=== PATIENT | female | born 1950 | race Caucasian/White ===

== ENCOUNTER → 2016-07-23 | Outpatient (CLI) | payer BC ==
[~2016-07-23] MED LIST: ACET-1325; ASPI81TA28 PO; ATOR-26 PO; DICL-201 PO; LISI20TA3 PO; METO50TA7 PO; OFLO0.3S4 OPL; PRED1SUS3; PRED1SUS3 OPR
[2016-07-23 10:59] LABS: CHOLESTEROL/HDL RATIO 6.2
== END | disposition home or self-care (01) ==
LOC: C.LABBC 08:31
PROVIDERS: ATTEND Internal Medicine Cardiovascular Disease
DX: E78.5 Hyperlipidemia, unspecified (principal)

== ENCOUNTER → 2017-02-04 | Outpatient (CLI) | payer BC | END | disposition home or self-care (01) | LOC: C.LABBC 08:24 | PROVIDERS: ATTEND Internal Medicine Cardiovascular Disease | DX: E78.5 Hyperlipidemia, unspecified (principal); I10 Essential (primary) hypertension ==

== ENCOUNTER → 2017-08-06 | Outpatient (CLI) | payer BC ==
[~2017-08-06] MED LIST changes: -METO50TA7 PO; +METO50TA8 PO
== END | disposition home or self-care (01) ==
LOC: C.LABBC 09:14
PROVIDERS: ATTEND Internal Medicine Cardiovascular Disease
DX: I67.9 Cerebrovascular disease, unspecified (principal)

== ENCOUNTER 2021-02-02 17:27 | Inpatient (IN) ==
--- NOTE | 2021-02-02 18:56 | CT Scan Report ---
CT head/brain wo con CLINICAL HISTORY: Stroke Alert . Left-sided weakness COMPARISON STUDY: No previous studies for comparison. CT DOSE: 537.48 mGy.cm TECHNIQUE: Standard CT of the Brain was performed without IV contrast. A dose lowering technique was utilized adhering to the principles of ALARA. FINDINGS: Extraaxial space: There is no evidence for subdural hematoma. There are no extra-axial fluid collecti ons. Ventricles and cisterns: The ventricles are normal in size and configuration. There is no evidence f or midline shift or mass effect. Parenchyma: There is no subarachnoid or intraparenchymal hemorrhage. There is asymmetric low attenua tion within the basal ganglia on the right when compared to the left. Presence of an early acute infa rct at this site cannot be excluded. There is homogeneous attenuation of the remaining brain MRI woul d be the study of choice for further evaluation. Parenchyma. There are no gross mass lesions. Osseous structures: There is no evidence for an acute fracture. The visualized paranasal sinuses are clear. The mastoid air cells are clear bilaterally. Soft tissues: There is no evidence for focal soft tissue swelling. IMPRESSION: Asymmetric low attenuation within the basal tendon on the right when compared to the left . The presence of an early acute infarct at the site cannot be excluded. ACT 112: Negative or not required by law. Electronically signed by: Francisco Moore M.D. 02/02/2021 6:54 PM
[2021-02-02 19:23] LABS: Hematocrit (blood only) 46.8 % (37-47); Hemoglobin 15.7 g/dL (12.0-16.0); Mean Corpuscular Hemoglobin 31.3 pg (25-34); Mean Corpuscular Hgb Conc 33.5 g/dL (32-36); Mean Corpuscular Volume 93.2 fL (80-100); Mean Platelet Volume 10.2 fL (7.4-10.4); Platelet Count 176 K/uL (130-400); RDW Coefficient of Variation 14.6 % (11.5-14.5); RDW Standard Deviation 49.5 fL (36.4-46.3); Red Blood Count 5.02 M/uL (4.2-5.4); White Blood Count 9.67 K/uL (4.8-10.8)
[2021-02-02 19:27] LABS: iSTAT Creatinine 0.7 mg/dl (0.6-1.3); iSTAT Ionized Calcium 1.27 mmol/l (1.12-1.32)
[2021-02-02 19:34] LABS: Partial Thromboplastin Ratio 0.9; Partial Thromboplastin Time 24.2 Seconds (21.0-31.0); Prothrombin Time 9.8 Seconds (9.0-12.0)
[2021-02-02 19:45] LABS: Alanine Aminotransferase 22 U/L (12-78); Albumin Globulin Ratio 0.8 (0.9-2); Albumin Level 3.3 gm/dl (3.4-5.0); Aspartate Aminotransferase 18 U/L (15-37); BUN Creatinine Ratio 24.1 (10-20); Bilirubin,Total 0.6 mg/dl (0.2-1); Blood Urea Nitrogen 20 mg/dl (7-18); Calcium 9.7 mg/dl (8.5-10.1); Carbon Dioxide 27 mmol/L (21-32); Chloride 109 mmol/L (98-107); Creatinine Clr Calc Pharmacy 57.8 ml/min; Est GFR (African American) 80.5 ml/min; Est GFR (Non-African American) 69.4 ml/min; Glucose 116 mg/dl (70-99); Magnesium 2.4 mg/dl (1.8-2.4); Potassium 3.7 mmol/L (3.5-5.1); Sodium 140 mmol/L (136-145); Total Protein 7.3 gm/dl (6.4-8.2)
[2021-02-02 19:46] LABS: Alkaline Phosphatase 90 U/L (45-117)
[2021-02-02] MEDS ORDERED: ASPIRIN 325 MG ECTAB PO STA (22:19)
[2021-02-02] MEDS ORDERED: hydrALAZINE HCL 20 MG/ML VIAL IV STA (22:24)
[2021-02-02] MEDS ORDERED: SODIUM CHLORIDE 0.9% 1000ML 1,000 ML IV SCH (22:30)
--- NOTE | 2021-02-02 22:30 | Emergency Department Note ---
History of Present Illness General Chief complaint: Stroke/CVA Symptoms Stated complaint: LEFT ARM WEAKNESS Time Seen by Provider: 02/02/21 22:01 Source: patient Mode of arrival: ambulatory Limitations: no limitations History of Present Illness Provider complaint: left sided weakness Onset (ago): day(s) 1 Location: upper extremity and lower extremity Radiation: non-radiation Associated symptoms: + denies other symptoms Treatments prior to arrival: none This is a 70-year-old female presents the emergency department complaining of left-sided weakness. Patient states yesterday afternoon between 3 and 4 PM she noticed that her left arm seemed weaker and heavier and she was having difficulty holding onto objects. Patient states as the evening progressed, the symptoms remain constant and she also noticed slight difficulty walking as her left leg also felt weak. Patient states she felt off balance but did not fall. She states she was holding onto additional objects to help prevent any fall. Patient denies any coming headaches, dizziness, vision changes, chest pain or trouble breathing. No recent falls or change in activity. Patient denies any recent change in medications. Patient states she does still smoke. She takes multiple medications for her blood pressure and does have a history of high cholesterol. Patient states symptoms were constant throughout the day and when she finally relayed this information to her significant other, he insisted she come in to the emergency department for evaluation. Patient does take low-dose aspirin daily. Patient was seen on a day of high volume and high acuity and labs as well as CT without contrast of the head which was performed by the patient was in the waiting room. Labs and imaging were reviewed with patient at bedside. Nursing staff did have to obtain a manual blood pressure which was improved compared to those previously recorded. Pt seen during a time of high acuity and national emergency pandemic while wearing PPE. Home Medications Medication Instructions Recorded Confirmed Type aspirin 81 mg tablet,delayed 81 mg PO HS 12/03/18 02/02/21 History release (Adult Low Dose Aspirin) diclofenac sodium 75 mg 75 mg PO TID tab 12/03/18 02/02/21 History tablet,delayed release amlodipine 5 mg tablet 5 mg PO DAILY #90 tab 05/31/20 02/02/21 Rx metoprolol succinate 50 mg 50 mg PO DAILY #90 tab 05/31/20 02/02/21 Rx tablet,extended release 24 hr lisinopril 40 mg tablet 40 mg PO DAILY #90 tab 08/23/20 02/02/21 Rx atorvastatin 80 mg tablet 80 mg PO HS 02/02/21 02/02/21 History clopidogrel 75 mg tablet 75 mg PO QAM #30 tab 02/04/21 Rx Allergies Allergy/AdvReac Type Severity Reaction Status Date / Time Penicillins Allergy Mild RASH WHEN Verified 02/02/21 22:46 HAD INJECTION CHILD- CAN TAKE PILLS Past Med/Surg History Social History Smoking Status: Current every day smoker Tobacco Type: Cigarettes Cigarettes Per Day: 20; Hx Alcohol Use: No Hx Substance Use: No Preferred Language: Maori Communication Ability: Effective 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 Beliefs That Will Affect Care: None marital status: Single Current Living Situation: Alone Feels Safe at Home: Yes Assistive Devices: None Review of Systems A total of 10 systems reviewed and were otherwise negative All systems reviewed & are unremarkable except as noted in HPI & below Physical Exam Vital Signs Vital Signs - 24 hr 02/02/21 18:22 02/02/21 22:07 02/02/21 22:08 Temperature 36.6 C Temperature Source Temporal Artery Scan Pulse Rate 56 L Pulse Rate [Finger] Pulse Rhythm Regular Pulse Rhythm [Finger] Pulse Strength Normal Pulse Strength [Finger] Respiratory Rate 20 Respiratory Effort / Characteristics Non-Labored Spontaneous Respiratory Depth Normal Respiratory Pattern Regular Blood Pressure 195/77 H Blood Pressure [Right Arm] Blood Pressure Mean 116 Blood Pressure Mean [Right Arm] Blood Pressure Position Sitting Blood Pressure Position [Right Arm] Pulse Oximetry 97 98 97 Oxygen Delivery Method Room Air Room Air Room Air Sepsis Recent Fever Within 48 Hours No Sepsis New/Unexplained Change in Mental Status No Sepsis Action Taken by Nursing No Action Required 02/02/21 22:12 02/02/21 22:25 Temperature 36 C L Temperature Source Oral Pulse Rate Pulse Rate [Finger] 61 Pulse Rhythm Pulse Rhythm [Finger] Regular Pulse Strength Pulse Strength [Finger] Normal Respiratory Rate 17 Respiratory Effort / Characteristics Non-Labored Respiratory Depth Normal Respiratory Pattern Regular Blood Pressure Blood Pressure [Right Arm] 162/92 H Blood Pressure Mean Blood Pressure Mean [Right Arm] 115 Blood Pressure Position Blood Pressure Position [Right Arm] Lying Lying Pulse Oximetry 98 Oxygen Delivery Method Room Air Sepsis Recent Fever Within 48 Hours Sepsis New/Unexplained Change in Mental Status Sepsis Action Taken by Nursing GENERAL: alert, well appearing, well nourished, no distress, non-toxic EYE EXAM: normal conjunctiva, PERRL and EOM's grossly intact OROPHARYNX: no exudate, no erythema, lips, buccal mucosa, and tongue normal and mucous membranes are moist NECK: supple, no nuchal rigidity, no adenopathy, non-tender LUNGS: Clear to auscultation. Normal chest wall mechanics, no w/r/r HEART: no murmurs, S1 normal and S2 normal ABDOMEN: abdomen soft, non-tender, normo-active bowel sounds, no masses, no rebound or guarding. BACK: Back is symmetrical on inspection and there is no deformity, no midline tenderness, no CVA tenderness. SKIN: no rashes and no bruising UPPER EXTREMITIES: upper extremities are grossly normal. FROM, nml pulses b/l. LOWER EXTREMITIES: No pitting edema. FROM, nml pulses b/l. NEURO EXAM: Normal sensorium, cranial nerves II-XII grossly intact, normal speech, no gross weakness of arms, no gross weakness of legs. Gross sensation intact. Course Course 2235: Pt updated on CT results and need for additional evaluation. 2300: Discussed with hospitalist. Would like CT angiography of the head and neck added. Administered Medications Discontinued Medications Amlodipine Besylate (Amlodipine Besylate 5 Mg Tab) 5 mg PO DAILY [facility]AN Stop: 03/05/21 08:59 Last Admin: 02/04/21 09:30 Dose: 5 mg Documented by: [id number] Admin: 02/03/21 08:01 Dose: 5 mg Documented by: [id number] Aspirin (Aspirin 325 Mg Ectab) 325 mg PO NOW [facility] Stop: 02/02/21 22:20 Last Admin: 02/02/21 22:56 Dose: 325 mg Documented by: [id number] Aspirin (Aspirin 81 Mg Ectab) 81 mg PO HS ALAN Stop: 03/05/21 20:59 Last Admin: 02/03/21 20:33 Dose: 81 mg Documented by: [id number] Atorvastatin Calcium (Atorvastatin 40 Mg Tab) 80 mg PO HS ALAN Stop: 03/05/21 20:59 Last Admin: 02/03/21 20:33 Dose: 80 mg Documented by: [id number] Clopidogrel Bisulfate (Clopidogrel Bisulfate 75 Mg Tab) 75 mg PO [facility] ALAN Stop: 03/06/21 08:59 Last Admin: 02/04/21 09:29 Dose: 75 mg Documented by: [id number] Enoxaparin Sodium (Enoxaparin Inj 30 Mg/0.3 Ml Syr) 30 mg SQ Q24H ALAN Stop: 03/05/21 08:59 Last Admin: 02/04/21 09:30 Dose: 30 mg Documented by: [id number] Admin: 02/03/21 08:01 Dose: 30 mg Documented by: [id number] Hydralazine HCl (Hydralazine Hcl 20 Mg/Ml Vial) 10 mg IV NOW [facility] Stop: 02/02/21 22:25 Last Admin: 02/02/21 22:30 Dose: Not Given Documented by: [id number] Sodium Chloride (Nss 1000ml) 1,000 mls @ 125 mls/hr IV .Q8H ALAN Stop: 03/04/21 22:29 Last Infusion: 02/03/21 02:28 Dose: 0 mls/hr Documented by: [id number] Admin: 02/02/21 22:56 Dose: 125 mls/hr Documented by: [id number] Potassium Chloride/Sodium Chloride (Normal Saline W/20 Meq Kcl) 20 meq in 1,000 mls @ 80 mls/hr IV .[id number] ALAN Stop: 02/03/21 14:59 Last Infusion: 02/03/21 18:23 Dose: 0 mls/hr Documented by: [id number] Admin: 02/03/21 04:37 Dose: 80 mls/hr Documented by: [id number] Ioversol (Optiray 320 125ml) 120 ml IV ONCE ONE Stop: 02/02/21 23:14 Last Admin: 02/03/21 02:23 Dose: Not Given Documented by: [id number] Lisinopril (Lisinopril 40 Mg Tab) 40 mg PO DAILY [facility] Stop: 03/05/21 08:59 Last Admin: 02/04/21 09:30 Dose: 40 mg Documented by: [id number] Admin: 02/03/21 08:02 Dose: 40 mg Documented by: [id number] Metoprolol Succinate (Metoprolol Succ 50mg Ext Rel Tab) 50 mg PO DAILY [facility]AN Stop: 03/05/21 08:59 Last Admin: 02/04/21 09:30 Dose: 50 mg Documented by: [id number] Admin: 02/03/21 08:02 Dose: Not Given Documented by: [id number] Medical Decision Making Differential Diagnosis Differential Diagnosis includes but is not limited to ischemic Stroke, hemorrhagic stroke, bells palsy, mass, neoplasm, migraine headache, seizure, subarachnoid hemorrhage, TIA, and transient global amnesia. Medical Records Attestation: I reviewed the patient's medical records. Home Medications Current Medication List: was personally reviewed by me Laboratory Data Attestation: I reviewed the patient's lab results. Result diagrams: 02/04/21 05:22 02/04/21 05:22 Lab Results 02/02/21 02/02/21 02/02/21 Range/Units 19:06 19:08 19:08 WBC 9.67 (4.8-10.8) K/uL RBC 5.02 (4.2-5.4) M/uL Hgb 15.7 (12.0-16.0) g/dL POC Hgb (12.0-16.0) g/dl Hct 46.8 (37-47) % POC Hct (37-47) % MCV 93.2 (80-100) fL MCH 31.3 (25-34) pg MCHC 33.5 (32-36) g/dL RDW Std Deviation 49.5 H (36.4-46.3) fL RDW Coeff of Agusto 14.6 H (11.5-14.5) % Plt Count 176 (130-400) K/uL MPV 10.2 (7.4-10.4) fL PT 9.8 (9.0-12.0) Seconds INR 1.0 (0.9-1.1) APTT 24.2 (21.0-31.0) Seconds PTT Ratio 0.9 POC Sodium (135-144) mmol/L Sodium (136-145) mmol/L POC Potassium (3.3-5.0) mmol/L Potassium (3.5-5.1) mmol/L POC Chloride (101-112) mmol/L Chloride (98-107) mmol/L Carbon Dioxide (21-32) mmol/L POC Total CO2 (24-31) mmol/L Anion Gap (3-11) POC Anion Gap (16-25) mmol/L POC BUN (7-18) mg/dl BUN (7-18) mg/dl Creatinine (0.6-1.2) mg/dl POC Creatinine (0.6-1.3) mg/dl Est Cr Clr Drug Dosing ml/min Est GFR ( Amer) ml/min Est GFR (Non-Af Amer) ml/min BUN/Creatinine Ratio (10-20) Glucose (70-99) mg/dl POC Glucose 104 H (70-99) mg/dl POC Glucose (other) (70-99) mg/dl Calcium (8.5-10.1) mg/dl POC Ioniz Calcium Marina (1.12-1.32) mmol/l Magnesium (1.8-2.4) mg/dl Total Bilirubin (0.2-1) mg/dl AST (15-37) U/L ALT (12-78) U/L Alkaline Phosphatase (45-117) U/L Troponin I (0-0.045) ng/ml Total Protein (6.4-8.2) gm/dl Albumin (3.4-5.0) gm/dl Globulin (2.5-4.0) gm/dl Albumin/Globulin Ratio (0.9-2) COVID-19 Eval Order SARS-CoV-2 (PCR) (Negative) 02/02/21 02/02/21 02/02/21 Range/Units 19:08 19:14 23:01 WBC (4.8-10.8) K/uL RBC (4.2-5.4) M/uL Hgb (12.0-16.0) g/dL POC Hgb 16.0 (12.0-16.0) g/dl Hct (37-47) % POC Hct 47 (37-47) % MCV (80-100) fL MCH (25-34) pg MCHC (32-36) g/dL RDW Std Deviation (36.4-46.3) fL RDW Coeff of Agusto (11.5-14.5) % Plt Count (130-400) K/uL MPV (7.4-10.4) fL PT (9.0-12.0) Seconds INR (0.9-1.1) APTT (21.0-31.0) Seconds PTT Ratio POC Sodium 142 (135-144) mmol/L Sodium 140 (136-145) mmol/L POC Potassium 4.0 (3.3-5.0) mmol/L Potassium 3.7 (3.5-5.1) mmol/L POC Chloride 106 (101-112) mmol/L Chloride 109 H (98-107) mmol/L Carbon Dioxide 27 (21-32) mmol/L POC Total CO2 27 (24-31) mmol/L Anion Gap 4.0 (3-11) POC Anion Gap 14.0 L (16-25) mmol/L POC BUN 23 H (7-18) mg/dl BUN 20 H (7-18) mg/dl Creatinine 0.84 (0.6-1.2) mg/dl POC Creatinine 0.7 (0.6-1.3) mg/dl Est Cr Clr Drug Dosing 57.8 ml/min Est GFR ( Amer) 80.5 ml/min Est GFR (Non-Af Amer) 69.4 ml/min BUN/Creatinine Ratio 24.1 H (10-20) Glucose 116 H (70-99) mg/dl POC Glucose (70-99) mg/dl POC Glucose (other) 116 H (70-99) mg/dl Calcium 9.7 (8.5-10.1) mg/dl POC Ioniz Calcium Marina 1.27 (1.12-1.32) mmol/l Magnesium 2.4 (1.8-2.4) mg/dl Total Bilirubin 0.6 (0.2-1) mg/dl AST 18 (15-37) U/L ALT 22 (12-78) U/L Alkaline Phosphatase 90 (45-117) U/L Troponin I < 0.015 (0-0.045) ng/ml Total Protein 7.3 (6.4-8.2) gm/dl Albumin 3.3 L (3.4-5.0) gm/dl Globulin 4.0 (2.5-4.0) gm/dl Albumin/Globulin Ratio 0.8 L (0.9-2) COVID-19 Eval Order Covid19 at [facility] SARS-CoV-2 (PCR) (Negative) 02/02/21 Range/Units 23:01 WBC (4.8-10.8) K/uL RBC (4.2-5.4) M/uL Hgb (12.0-16.0) g/dL POC Hgb (12.0-16.0) g/dl Hct (37-47) % POC Hct (37-47) % MCV (80-100) fL MCH (25-34) pg MCHC (32-36) g/dL RDW Std Deviation (36.4-46.3) fL RDW Coeff of Agusto (11.5-14.5) % Plt Count (130-400) K/uL MPV (7.4-10.4) fL PT (9.0-12.0) Seconds INR (0.9-1.1) APTT (21.0-31.0) Seconds PTT Ratio POC Sodium (135-144) mmol/L Sodium (136-145) mmol/L POC Potassium (3.3-5.0) mmol/L Potassium (3.5-5.1) mmol/L POC Chloride (101-112) mmol/L Chloride (98-107) mmol/L Carbon Dioxide (21-32) mmol/L POC Total CO2 (24-31) mmol/L Anion Gap (3-11) POC Anion Gap (16-25) mmol/L POC BUN (7-18) mg/dl BUN (7-18) mg/dl Creatinine (0.6-1.2) mg/dl POC Creatinine (0.6-1.3) mg/dl Est Cr Clr Drug Dosing ml/min Est GFR ( Amer) ml/min Est GFR (Non-Af Amer) ml/min BUN/Creatinine Ratio (10-20) Glucose (70-99) mg/dl POC Glucose (70-99) mg/dl POC Glucose (other) (70-99) mg/dl Calcium (8.5-10.1) mg/dl POC Ioniz Calcium Marina (1.12-1.32) mmol/l Magnesium (1.8-2.4) mg/dl Total Bilirubin (0.2-1) mg/dl AST (15-37) U/L ALT (12-78) U/L Alkaline Phosphatase (45-117) U/L Troponin I (0-0.045) ng/ml Total Protein (6.4-8.2) gm/dl Albumin (3.4-5.0) gm/dl Globulin (2.5-4.0) gm/dl Albumin/Globulin Ratio (0.9-2) COVID-19 Eval Order SARS-CoV-2 (PCR) NEGATIVE (Negative) Imaging Data Radiologist's Impression: Head CT 02/02/21 18:28 CT head/brain wo con CLINICAL HISTORY: Stroke Alert . Left-sided weakness COMPARISON STUDY: No previous studies for comparison. CT DOSE: 537.48 mGy.cm TECHNIQUE: Standard CT of the Brain was performed without IV contrast. A dose lowering technique was utilized adhering to the principles of ALARA. FINDINGS: Extraaxial space: There is no evidence for subdural hematoma. There are no extra-axial fluid collections. Ventricles and cisterns: The ventricles are normal in size and configuration. There is no evidence for midline shift or mass effect. Parenchyma: There is no subarachnoid or intraparenchymal hemorrhage. There is asymmetric low attenuation within the basal ganglia on the right when compared to the left. Presence of an early acute infarct at this site cannot be excluded. There is homogeneous attenuation of the remaining brain MRI would be the study of choice for further evaluation. Parenchyma. There are no gross mass lesions. Osseous structures: There is no evidence for an acute fracture. The visualized paranasal sinuses are clear. The mastoid air cells are clear bilaterally. Soft tissues: There is no evidence for focal soft tissue swelling. IMPRESSION: Asymmetric low attenuation within the basal tendon on the right when compared to the left. The presence of an early acute infarct at the site cannot be excluded. ACT 112: Negative or not required by law. Electronically signed by: Francisco Moore M.D. 02/02/2021 6:54 PM ECG Data Attestation: I personally reviewed and interpreted this ECG as follows: Indication: + weakness Rate (beats per minute): 62 Rhythm: + normal sinus ECG Intervals/blocks: + Normal QRS and + Normal QT ECG [place]: + Normal ECG ST segments: + Normal ST segments MDM Narrative This is a 70-year-old female with multiple medical problems and ongoing tobacco abuse who presents due to concern for left-sided weakness that began yesterday. Patient denies any trauma or change in activity. No prior similar episodes. No recent change in medications. Patient vocalized this today to her and he insisted she come in for evaluation. Protocol labs and imaging have been started by nursing staff prior to my evaluation. I did review these at bedside with the patient including the abnormal head CT suggestive of possible evolving CVA. Discussed with patient need for additional inpatient evaluation and monitoring. Discussed the need for additional imaging. Case discussed with the hospitalist team who requested CT angiography be added in addition. Patient does take ASA daily. An order was placed for continuous cardiac monitoring. The monitor shows a rate of _76_ with _normal sinus_ rhythm. Impression & Plan Acute CVA (cerebrovascular accident), Hypertension Discharge Plan Visit Data Chief Complaint: Stroke/CVA Symptoms Stated Complaint: LEFT ARM WEAKNESS ED Provider: Trixie Payne Discharge Problem: Acute CVA (cerebrovascular accident), Hypertension Patient Disposition: Admitted As Inpatient Condition: Good Discharge Instructions Interventions: ED Discharge Assessment Last Done: 02/03/21 01:52 Discharge Problem: Hypertension Qualifiers: Hypertension type: primary hypertension Qualified Code(s): I10 - Essential (primary) hypertension
[2021-02-02] MEDS ORDERED: OPTIRAY 320 125ml IV ONE (23:13)
[2021-02-02 23:17] LABS: Troponin I < 0.015 ng/ml (0-0.045)
--- NOTE | 2021-02-02 23:33 | History & Physical Report ---
Date of Service February 02, 2021 Assessment & Plan (1) Left-sided weakness: Plan: Left-sided weakness/history of cerebrovascular disease/question early infarct right basal ganglia on CT- Stroke without TPA order set Patient does have some residual left upper extremity weakness since the onset of symptoms yesterday I have asked the ED to order CTA head and neck Can follow-up MRI brain tomorrow as needed Consult PT/OT/speech/neurology Presently on aspirin 81 mg daily, will leave it to neurology to change to clopidogrel 75 mg daily when assessed tomorrow (2) Cerebrovascular disease: Plan: See above (3) CAD (coronary artery disease): Plan: CAD/hypertension- Continue amlodipine, aspirin, lisinopril and metoprolol succinate (4) Hypertension: Plan: See above (5) Hypercholesterolemia: Plan: Continue Lipitor 80 mg daily Check a fasting lipid panel and hemoglobin A1c (6) PVD (peripheral vascular disease): Plan: No new symptoms, treat along with CAD and CVD History of Present Illness Chief Complaint: The patient presents to the emergency department with complaint of left upper extremity greater than left lower extremity weakness that began yesterday afternoon, and gradually improved since that time. Primary Care Provider: Robb Fernando MD The patient is a 70-year-old female with a past medical history including hypercholesterolemia, hypertension, PVD, cerebrovascular disease, CAD and arthritis. She presents to the emergency department more than 24 hours after the development of left upper extremity greater than lower extremity weakness, with symptoms significantly improved, with some residual left upper extremity weakness. CT of head without contrast question early infarct in the right basal ganglia. CTA head neck is not ordered and pending Of note, the patient Does continue to smoke three quarters of a pack of cigarettes daily Allergies Allergy/AdvReac Type Severity Reaction Status Date / Time Penicillins Allergy Mild RASH WHEN Verified 02/02/21 22:46 HAD INJECTION CHILD- CAN TAKE PILLS Home Medications Medication Instructions Recorded Confirmed Type aspirin 81 mg tablet,delayed 81 mg PO HS 12/03/18 02/02/21 History release (Adult Low Dose Aspirin) diclofenac sodium 75 mg 75 mg PO TID tab 12/03/18 02/02/21 History tablet,delayed release amlodipine 5 mg tablet 5 mg PO DAILY #90 tab 05/31/20 02/02/21 Rx metoprolol succinate 50 mg 50 mg PO DAILY #90 tab 05/31/20 02/02/21 Rx tablet,extended release 24 hr lisinopril 40 mg tablet 40 mg PO DAILY #90 tab 08/23/20 02/02/21 Rx atorvastatin 80 mg tablet 80 mg PO HS 02/02/21 02/02/21 History Past Med/Surg History Social History Smoking Status: Current every day smoker Tobacco Type: Cigarettes Preferred Language: Maldivian Feels Safe at Home: Yes Review of Systems Review of Systems: The patient denies chest pain, palpitations, shortness of breath, dyspnea on exertion, cough, lower extremity swelling, sore throat, fevers, chills, sweats, weight change, fatigue, nausea, vomiting, diarrhea , constipation, abdominal pain, pelvic pain, blood in urine or stool, dysuria, urinary frequency or urgency, lightheadedness, dizziness, headache, memory loss, loss of consciousness, rash, abnormal bruising or bleeding, focal or generalized weakness, numbness or tingling in right arm or leg, generalized arthralgias or myalgias, back or neck pain, or night sweats. The review of systems is otherwise negative other than for that already noted above, and at least 10 systems have been reviewed. Physical Exam Physical Exam: The patient is awake, alert and oriented 3, well developed and well nourished, normocephalic and atraumatic, lying in bed and in no acute distress. HEENT--PERRL, EOMI, mucous membranes and oropharynx dry. Neck--supple. No JVD. No bruits. Thyroid normal, trachea midline, no adenopathy. Heart--normal S1 and S2. No murmurs, rubs or gallops. Lungs--clear bilaterally, no respiratory distress, no accessory muscle use. Abdomen--normal bowel sounds and soft. Nontender. Nondistended, no hernias or masses, no organomegaly. Extremities--no cyanosis or clubbing. No edema. There are good distal pulses b/l. Dermatologic--normal skin turgor, normal color, no abnormal lymph nodes, no rash. Neurologic--cranial nerves II through XII grossly intact. Left upper extremity 4+/5, otherwise examination is 5+ out of 5 left lower extremity and right upper and lower extremities Rheumatologic--normal range of motion. Psychiatric--normal affect. Results & Data Results & Data ([facility]) Vital Signs (Past 12 Hours) Vital Signs Temp Pulse Pulse Resp BP BP Pulse Ox 02/02/21 22:25 162/92 H 02/02/21 22:12 96.8 F L 61 17 98 02/02/21 22:08 97 02/02/21 22:07 98 02/02/21 18:22 97.9 F 56 L 20 195/77 H 97 Laboratory Results Laboratory Results WBC 9.67 K/uL (4.8-10.8) 02/02/21 19:08 RBC 5.02 M/uL (4.2-5.4) 02/02/21 19:08 Hgb 15.7 g/dL (12.0-16.0) 02/02/21 19:08 POC Hgb 16.0 g/dl (12.0-16.0) 02/02/21 19:14 Hct 46.8 % (37-47) 02/02/21 19:08 POC Hct 47 % (37-47) 02/02/21 19:14 MCV 93.2 fL (80-100) 02/02/21 19:08 MCH 31.3 pg (25-34) 02/02/21 19:08 MCHC 33.5 g/dL (32-36) 02/02/21 19:08 RDW Std Deviation 49.5 fL (36.4-46.3) H 02/02/21 19:08 RDW Coeff of Agusto 14.6 % (11.5-14.5) H 02/02/21 19:08 Plt Count 176 K/uL (130-400) 02/02/21 19:08 MPV 10.2 fL (7.4-10.4) 02/02/21 19:08 PT 9.8 Seconds (9.0-12.0) 02/02/21 19:08 INR 1.0 (0.9-1.1) 02/02/21 19:08 APTT 24.2 Seconds (21.0-31.0) 02/02/21 19:08 PTT Ratio 0.9 02/02/21 19:08 POC Sodium 142 mmol/L (135-144) 02/02/21 19:14 Sodium 140 mmol/L (136-145) 02/02/21 19:08 POC Potassium 4.0 mmol/L (3.3-5.0) 02/02/21 19:14 Potassium 3.7 mmol/L (3.5-5.1) 02/02/21 19:08 POC Chloride 106 mmol/L (101-112) 02/02/21 19:14 Chloride 109 mmol/L (98-107) H 02/02/21 19:08 Carbon Dioxide 27 mmol/L (21-32) 02/02/21 19:08 POC Total CO2 27 mmol/L (24-31) 02/02/21 19:14 Anion Gap 4.0 (3-11) 02/02/21 19:08 POC Anion Gap 14.0 mmol/L (16-25) L 02/02/21 19:14 POC BUN 23 mg/dl (7-18) H 02/02/21 19:14 BUN 20 mg/dl (7-18) H 02/02/21 19:08 Creatinine 0.84 mg/dl (0.6-1.2) 02/02/21 19:08 POC Creatinine 0.7 mg/dl (0.6-1.3) 02/02/21 19:14 Est Cr Clr Drug Dosing 57.8 ml/min 02/02/21 19:08 Est GFR ( Amer) 80.5 ml/min 02/02/21 19:08 Est GFR (Non-Af Amer) 69.4 ml/min 02/02/21 19:08 BUN/Creatinine Ratio 24.1 (10-20) H 02/02/21 19:08 Glucose 116 mg/dl (70-99) H 02/02/21 19:08 POC Glucose 104 mg/dl (70-99) H 02/02/21 19:06 POC Glucose (other) 116 mg/dl (70-99) H 02/02/21 19:14 Calcium 9.7 mg/dl (8.5-10.1) 02/02/21 19:08 POC Ioniz Calcium Marina 1.27 mmol/l (1.12-1.32) 02/02/21 19:14 Magnesium 2.4 mg/dl (1.8-2.4) 02/02/21 19:08 Total Bilirubin 0.6 mg/dl (0.2-1) 02/02/21 19:08 AST 18 U/L (15-37) 02/02/21 19:08 ALT 22 U/L (12-78) 02/02/21 19:08 Alkaline Phosphatase 90 U/L (45-117) 02/02/21 19:08 Troponin I < 0.015 ng/ml (0-0.045) 02/02/21 19:08 Total Protein 7.3 gm/dl (6.4-8.2) 02/02/21 19:08 Albumin 3.3 gm/dl (3.4-5.0) L 02/02/21 19:08 Globulin 4.0 gm/dl (2.5-4.0) 02/02/21 19:08 Albumin/Globulin Ratio 0.8 (0.9-2) L 02/02/21 19:08 COVID-19 Eval Order Covid19 at [facility] 02/02/21 23:01 SARS-CoV-2 (PCR) NEGATIVE (Negative) 02/02/21 23:[address] 02/02/21 18:28 CT head/brain wo con CLINICAL HISTORY: Stroke Alert . Left-sided weakness COMPARISON STUDY: No previous studies for comparison. CT DOSE: 537.48 mGy.cm TECHNIQUE: Standard CT of the Brain was performed without IV contrast. A dose lowering technique was utilized adhering to the principles of ALARA. FINDINGS: Extraaxial space: There is no evidence for subdural hematoma. There are no extra-axial fluid collections. Ventricles and cisterns: The ventricles are normal in size and configuration. There is no evidence for midline shift or mass effect. Parenchyma: There is no subarachnoid or intraparenchymal hemorrhage. There is asymmetric low attenuation within the basal ganglia on the right when compared to the left. Presence of an early acute infarct at this site cannot be excluded. There is homogeneous attenuation of the remaining brain MRI would be the study of choice for further evaluation. Parenchyma. There are no gross mass lesions. Osseous structures: There is no evidence for an acute fracture. The visualized paranasal sinuses are clear. The mastoid air cells are clear bilaterally. Soft tissues: There is no evidence for focal soft tissue swelling. IMPRESSION: Asymmetric low attenuation within the basal tendon on the right when compared to the left. The presence of an early acute infarct at the site cannot be excluded. ACT 112: Negative or not required by law. Electronically signed by: Francisco Moore M.D. 02/02/2021 6:54 PM Code Status & VTE Plan Code Status Full code VTE Prophylaxis Plan VTE Prophylaxis will be ordered: Yes PG Care Time/CCT Total # of Minutes Spent Total Time Spent with Patient: Total time spent is greater than 50% in coordination of care (as documented) at patient's floor/unit and/or counseling patient: Coding Level of Care Code INT OBSERVATION CARE 70M LVL 3 Diagnoses Hypercholesterolemia E78.00 Hypertension I10 PVD (peripheral vascular disease) I73.9 Cerebrovascular disease I67.9 CAD (coronary artery disease) I25.10 Left-sided weakness R53.1
[2021-02-03] MEDS ORDERED: PHARMACIST DISCHARGE MED REC CONSULT PRN (01:57)
[2021-02-03] MEDS ORDERED: ACETAMINOPHEN 325 MG TAB PO PRN (01:57)
[2021-02-03] MEDS ORDERED: ONDANSETRON INJ 2 MG/ML 2 ML VIAL IV PRN (01:57)
[2021-02-03] MEDS ORDERED: NSS + 20MEQ KCL 20 MEQ/1,000 ML BAG IV SCH (02:30)
[2021-02-03 06:02] LABS: Basophils # (auto) 0.03 K/uL (0-0.2); Basophils % (auto) 0.4 %; Eosinophils # (auto) 0.23 K/uL (0-0.5); Eosinophils % (auto) 2.9 %; Hematocrit (blood only) 44.3 % (37-47); Hemoglobin 14.8 g/dL (12.0-16.0); Immature Granulocytes # (auto) 0.01 K/uL (0.00-0.02); Immature Granulocytes % (auto) 0.1 %; Lymphocytes # (auto) 2.42 K/uL (1.2-3.4); Lymphocytes % (auto) 30.4 %; Mean Corpuscular Hemoglobin 31.4 pg (25-34); Mean Corpuscular Hgb Conc 33.4 g/dL (32-36); Mean Corpuscular Volume 93.9 fL (80-100); Mean Platelet Volume 10.7 fL (7.4-10.4); Monocytes # (auto) 0.58 K/uL (0.11-0.59); Monocytes % (auto) 7.3 %; Neutrophils # (auto) 4.68 K/uL (1.4-6.5); Neutrophils % (auto) 58.9 %; Platelet Count 175 K/uL (130-400); RDW Coefficient of Variation 14.5 % (11.5-14.5); RDW Standard Deviation 50.2 fL (36.4-46.3); Red Blood Count 4.72 M/uL (4.2-5.4); White Blood Count 7.95 K/uL (4.8-10.8)
[2021-02-03 06:16] LABS: Alanine Aminotransferase 18 U/L (12-78); Albumin Globulin Ratio 0.8 (0.9-2); Albumin Level 2.8 gm/dl (3.4-5.0); Alkaline Phosphatase 81 U/L (45-117); Aspartate Aminotransferase 15 U/L (15-37); BUN Creatinine Ratio 20.1 (10-20); Bilirubin,Total 0.7 mg/dl (0.2-1); Blood Urea Nitrogen 15 mg/dl (7-18); Carbon Dioxide 26 mmol/L (21-32); Chloride 109 mmol/L (98-107); Creatinine Clr Calc Pharmacy 65.7 ml/min; Est GFR (African American) 95.4 ml/min; Est GFR (Non-African American) 82.3 ml/min; Globulin 3.5 gm/dl (2.5-4.0); Glucose 107 mg/dl (70-99); Potassium 3.7 mmol/L (3.5-5.1); Sodium 141 mmol/L (136-145); Total Protein 6.3 gm/dl (6.4-8.2)
[2021-02-03 06:22] LABS: Chol HDL Ratio 4; Cholesterol 153 mg/dl (0-200); HDL Cholesterol 40 mg/dl; LDL Cholesterol Calculated 84 mg/dl; Triglycerides 144 mg/dl (0-150); Troponin I < 0.015 ng/ml (0-0.045); VLDL Cholesterol 29 mg/dl
[2021-02-03 06:56] LABS: Estimated Average Glucose 128 mg/dl; Hemoglobin A1C 6.1 % (4.5-5.6)
--- NOTE | 2021-02-03 07:32 | CT Scan Report ---
CT ANGIOGRAM OF THE BRAIN; CT ANGIOGRAM OF THE NECK CLINICAL HISTORY: Strokelike symptoms. COMPARISON STUDY: Unenhanced CT of the brain performed earlier the same day 02/02/2021. TECHNIQUE: Following the IV administration of 120 of Optiray 320, CT angiogram of the head and neck w as performed from the aortic arch to the vertex. Images are reviewed in the axial, sagittal, and henrik nal planes. 3-D MIPS images are created and assessed. IV contrast was administered without complicati on. All measurements were calculated based on NASCET criteria. A dose lowering technique was utilize d adhering to the principles of ALARA. CT DOSE: 535.28 mGy.cm FINDINGS: Brain parenchyma: There is age-related involutional change noting mild subcortical and periventricula r microangiopathic disease. There is no evidence of hemorrhage, mass effect, or acute territorial isc hemia noting angiographic phase technique. There is an 11 mm enhancing extra-axial lesion along the r ight parietal convexity seen on axial image #185. This is typical for a meningioma. The ventricles, s ulci, and cisterns are prominent secondary to involutional change. Camp-white matter differentiation is preserved. No extra-axial fluid collection is seen. Thoracic aorta: There is atherosclerotic calcification of the thoracic aorta. Visualized portions of the thoracic aorta are normal in caliber. The aortic arch demonstrates bovine variant anatomy. Right carotid arterial system: The right common carotid artery is widely patent, as are the right int ernal and external carotid arteries. Calcified plaque is noted in the carotid bulb. Left carotid arterial system: The left common carotid artery is widely patent, as are the left biomedical engineering internship al and external carotid arteries. Mild plaque is seen in the carotid bulb. Vertebral arteries: The vertebral arteries are widely patent bilaterally and codominant. Subclavian arteries: Widely patent bilaterally. Intracranial vasculature: The apache of [place] is developmentally complete. There is mild atheroscler otic calcification of the cavernous carotid arteries. The internal carotid arteries are patent at the skull base, as are the anterior and middle cerebral arteries bilaterally. The vertebrobasilar system and posterior cerebral arteries are widely patent. The vertebral arteries are codominant. There is n o aneurysm, high-grade stenosis, or focal vessel cut off seen throughout the intracranial circulation . Jugular veins: Patent bilaterally. Dural sinuses: Patent. Lung apices: Partially visualized upper lobe lung parenchyma appears clear. Soft tissues: The visualized pharyngeal soft tissues are normal in appearance noting angiographic pha se technique. The oropharyngeal airway appears widely patent. The salivary and thyroid glands are nor mal in appearance. No cervical lymphadenopathy is seen. Skeletal structures: The skeletal structures are osteopenic. The calvarium appears intact. The cervic al spine is maintained noting multilevel spondylosis. No lytic or blastic lesion is seen. Orbits: The bony orbits are intact. Orbital contents are normal as visualized noting bilateral ocular lens implants. Sinuses and mastoids: There is trace mucosal thickening in the right maxillary antrum and the left sp henoid sinus. The remaining paranasal sinuses are clear. The mastoid air cells are well pneumatized. IMPRESSION: 1. There is no evidence of hemorrhage, mass effect, or acute territorial ischemia noting angiographic phase technique. 2. Unremarkable CT angiogram of the brain. 3. Unremarkable CT angiogram of the neck. 4. An 11 mm enhancing extra-axial nodule along the right convexity is typical for a meningioma. ACT 112: Negative or not required by law. Electronically signed by: Kaden Crowell M.D. 02/03/2021 7:30 AM
--- NOTE | 2021-02-03 07:41 | Magnetic Resonance Report ---
MR brain wo con HISTORY: 70 years-old Female CVA acute strokelike symptoms COMPARISON: Head CT, CTA head and neck 02/02/2021 TECHNIQUE: Multiplanar multisequence MRI of the brain was obtained without the use of IV contrast. FINDINGS: There is a 9 mm focus of restricted diffusion within the periventricular right frontal lobe on image 14 series 4 which demonstrates decreased signal on the ADC map. 8 mm focus of restricted diffusion in volves the cortex of the left occipital lobe on image 10. No acute or subacute territorial infarct. N o pathologic blooming artifact. No acute intracranial hemorrhage, midline shift, abnormal extra axial collection, hydrocephalus or intra-axial mass. 11 mm extra-axial lesion adjacent to the right pariet al lobe which 17 series 5 correlates with the lesion described on the recent CT head. Age-related inv olutional changes. Moderate to extensive T2/FLAIR hyperintensities are noted throughout the white mat ter. Cerebral venous sinuses and major arterial flow voids appear patent. Mastoid air cells are clear. Min imal mucosal thickening of the paranasal sinuses. The skull and soft tissues are unremarkable. Prior bilateral lens repair. IMPRESSION: 1. Subcentimeter acute infarcts of the periventricular right frontal lobe and left occipital lobe. Co rrelation with echocardiogram recommended to exclude a proximal embolic source. 2. No acute intracranial hemorrhage. 3. Moderate to extensive chronic microvascular ischemic disease. 4. 11 mm probable meningioma is again noted adjacent to the right parietal lobe. ACT 112: Negative or not required by law. The above report was generated using voice recognition software. It may contain grammatical, syntax o r spelling errors. Electronically signed by: Edwar Gomez M.D. 02/03/2021 7:40 AM
[2021-02-03] MEDS: amLODIPine BESYLATE 5 MG TAB PO SCH (08:01)
[2021-02-03] MEDS: ENOXAPARIN INJ 30 MG/0.3 ML SYR SQ SCH (08:01)
[2021-02-03] MEDS: METOPROLOL SUCC 50MG EXT REL TAB PO SCH (08:02)
[2021-02-03] MEDS: lisinopril 40 MG TAB PO SCH (08:02)
--- NOTE | 2021-02-03 10:08 | Neurology Consultation ---
Date of Consultation February 03, 2021 Assessment & Plan (1) Stroke: Acute to subacute appearing strokes, while within the subcortical right frontal lobe, the other within the left occipital lobe. Patient presents with an associated left hemiparesis, mild severity, improving. Does not have an obvious visual field deficit with confrontation testing. No significant lesion identified on CT angiography of the head and neck, cardioembolic etiology not excluded. Stroke risk factors for this patient include hypertension, hypercholesterolemia, and tobacco use. Would recommend echocardiogram with bubble study. Would recommend adding clopidogrel 75 mg/day. Continue with aspirin 81 mg/day. Would recommend 30-day mobile outpatient cardiac telemetry. If atrial fibrillation identified would recommend anticoagulation. Permissive hypertension, systolic blood pressure 140 to 160 mmHg. Patient will need counseling regarding tobacco cessation. Continue with atorvastatin 80 mg/day. Would be worthwhile to obtain an outpatient ophthalmology assessment to fully assess her visual crump. History of Present Illness Reason for Consultation: stroke Requesting Physician: Britton Oden MD Attending Physician: Angel Azar MD History of Present Illness The patient is a 70-year-old female with a chief complaint of left-sided weakness that began 2 days ago. Her weakness affects the left arm and leg and has been fairly persistent. She is not aware of any facial droop or disturbance of vision. No associated headache or vertigo. She denies having similar symptoms in the past, no known history of stroke or TIA. She has been having more difficulty with the hand and arm rather than the leg. However, she has had some difficulty with standing and walking due to left leg weakness. She does admit that her symptoms are modestly improved this morning, however. Patient has a past medical history of hypertension and hypercholesterolemia, she is prescribed daily low-dose aspirin, atorvastatin, and several antihypertensives. Her blood pressure has been modestly to significantly elevated during this hospitalization. She has been compliant with her outpatient medications. A CT of the head was negative for hemorrhage although there were changes suggestive of a subacute ischemic infarct within the right subcortical/basal ganglia region. CT angiography of the head and neck were unremarkable. There is an incidental 11 mm meningioma along the right cerebral convexity. A follow-up brain MRI has been completed as well. The study does reveal 2 small subacute ischemic infarcts, well within the right subcortical frontal lobe and the other within the left occipital lobe. Distribution/pattern suggestive of embolic etiology. I did review the images as well as the radiologist interpretation of these tests. Allergies Allergy/AdvReac Type Severity Reaction Status Date / Time Penicillins Allergy Mild RASH WHEN Verified 02/02/21 22:46 HAD INJECTION CHILD- CAN TAKE PILLS Home Medications Medication Instructions Recorded Confirmed Type aspirin 81 mg tablet,delayed 81 mg PO HS 12/03/18 02/02/21 History release (Adult Low Dose Aspirin) diclofenac sodium 75 mg 75 mg PO TID tab 12/03/18 02/02/21 History tablet,delayed release amlodipine 5 mg tablet 5 mg PO DAILY #90 tab 05/31/20 02/02/21 Rx metoprolol succinate 50 mg 50 mg PO DAILY #90 tab 05/31/20 02/02/21 Rx tablet,extended release 24 hr lisinopril 40 mg tablet 40 mg PO DAILY #90 tab 08/23/20 02/02/21 Rx atorvastatin 80 mg tablet 80 mg PO HS 02/02/21 02/02/21 History Patient History Social History Smoking Status: Current every day smoker Tobacco Type: Cigarettes Cigarettes Per Day: 20; Hx Alcohol Use: No Hx Substance Use: No Preferred Language: Monegasque Communication Ability: Effective Associate Pastor Required: No Beliefs That Will Affect Care: None Current Living Situation: Alone Other Information That Helps Us Care for You: No Feels Safe at Home: Yes Safety Concerns: Feels Safe At This Time Assistive Devices: None Review of Systems Constitutional: no fever and no chills Eyes: no blind spots and no diplopia Ear, Nose, Mouth, Throat: no ear pain and no hearing loss Respiratory: no cough and no dyspnea Cardiovascular: no chest pain and no palpitations Gastrointestinal: no constipation and no diarrhea/loose stools Genitourinary: no urinary urgency and no urinary incontinence Musculoskeletal: no muscle weakness and no muscle atrophy Integumentary: no rash and no lesions Neurologic: as per Subjective / HPI Psychiatric: no behavioral changes, no depression, no abnormal sleep pattern and no anxiety Hematologic / Lymphatic: no easy bruising and no lymphadenopathy Exam (Neuro) Constitutional: well developed and well nourished; no acute distress Eyes: normal visual crump by confrontation, PERRL, normal accommodation and EOM intact bilaterally; no fundoscopic abnormality, no nystagmus and no papilledema Cardiovascular: Vessels: normal carotid upstroke; no carotid bruit Neurologic: Oriented to:: Person, Place and Time Memory: Short Term Intact and Remote Intact Attention: Span Intact and Concentration Intact Language: Naming Objects and Repeating Phrases Speech Fluency: negative Dysarthria Speech Aphasia: negative Aphasia Fund of Knowledge: Current Events, Past History and Vocabulary Cranial Nerves: Normal II (Visual crump full to confrontation, visual acuity normal), III, IV, (Pupils equal round reactive to light and accommodation, eye movements normal), V (Facial sensation intact), VII (There is no facial droop or weakness), VIII (Hearing intact), IX, X (Palate elevates to midline), XI (Shoulder shrug intact) and XII (Tongue protrudes to midline) Motor Strength: Pronator Drift Laterality: Left and Hemiparesis (mild) Laterality: Left; negative Normal Lower Extremities or Normal Upper Extremities Motor Tone: Normal Lower Extremities and Normal Upper Extremities Muscle Bulk/Involuntary Movements: No Involuntary Movements; negative Muscle Atrophy Sensation: Light Touch Intact, Pain/Temperature Intact, Vibration Intact and Proprioception Intact Coordination: Normal, Finger-Nose Abnormal Laterality: Left and Heel-Santana Abnormal Laterality: Left; negative Limited Balance or Dysdiadochokinesia Deep Tendon Reflexes: Rt Triceps: 2+, Lt Triceps: 3+, Rt Biceps: 2+, Lt Biceps: 3+, Rt Brachioradialis: 2+, Lt Brachioradialis: 3+, Rt Patellar: 2+, Lt Patellar: 3+, Rt Ankle: 1+ and Lt Ankle: 2+ Special Tests: Babinski Present (left) Details: Not tested in the context of patient's current medical status. Results & Data ([facility]) Vital Signs (Past 12 Hours) Vital Signs Temp Pulse Resp BP Pulse Ox 02/03/21 08:17 48 L 18 174/64 H 99 02/03/21 04:00 37 C 47 L 16 167/87 H 93 02/03/21 02:07 36.7 C 54 L 16 203/67 H 93 02/03/21 00:44 50 L 16 175/90 H 94 02/02/21 22:25 162/92 H 02/02/21 22:12 36 C L 61 17 98 02/02/21 22:08 97 02/02/21 22:07 98 Laboratory Results WBC 7.95, hemoglobin 14.8, hematocrit 44.3, platelet count 175, sodium 141, potassium 3.7, BUN 15, creatinine 0.73, glucose 107, hemoglobin A1c 6.1, AST 15, ALT 18, troponin less than 0.015, triglycerides 144, cholesterol 153, LDL 84, VLDL 29, HDL [address] of the head, CT angiography of the head and neck, and brain MRI are as described in history of present illness. An electrocardiogram reveals a normal sinus rhythm with sinus arrhythmia, 62 bpm. Coding Level of Care Code 91893 Initial In Care Lvl 3 Diagnoses Stroke I63.9
--- NOTE | 2021-02-03 12:28 | XCELERA ---
[id number]
--- NOTE | 2021-02-03 13:38 | Electrocardiogram Report ---
Test Reason : Blood Pressure : / mmHG Vent. Rate : 062 BPM Atrial Rate : 062 BPM P-R Int : 144 ms QRS Dur : 094 ms QT Int : 418 ms P-R-T Axes : 026 -01 000 degrees QTc Int : 424 ms Normal sinus rhythm with sinus arrhythmia Otherwise Normal ECG No previous ECGs available Confirmed by Robb Leiva ([id number]) on 02/03/2021 1:38:18 PM Referred By: REFERRED SELF Confirmed By:Robb Leiva
--- NOTE | 2021-02-03 14:56 | Hospitalist Progress Note ---
Date of Service February 03, 2021 Assessment & Plan (1) Cerebrovascular disease: Plan: Patient presents with left sided weakness, which improved CT head done showed early infarct in the right basal ganglia MRI brain was done which showed a subcentimeter acute infarcts of the periventricular right frontal lobe and left occipital lobe Currently on Plavix and Aspirin ECHO has been done, official report pending (2) Left-sided weakness: Plan: Likely due to acute stroke Weakness has improved Physical Therapy recommends rolling walker, but she does not want it (3) CAD (coronary artery disease): Plan: CAD/hypertension- Continue amlodipine, aspirin, lisinopril and metoprolol succinate (4) Hypertension: Plan: Permissive HTN Keep BP around systolic 140-160 (5) Hypercholesterolemia: Plan: Continue Lipitor 80 mg daily Check a fasting lipid panel and hemoglobin A1c (6) PVD (peripheral vascular disease): Plan: No new symptoms, treat along with CAD and CVD Admission and Anticipated Discharge Date Admission Date: February 02, 2021 Discharge home in the next 24 hrs Subjective Patient seen and examined in the ED, said her left sided weakness is improving Review of Systems Review of Systems: All systems reviewed are negative, apart from the ones contained in the history. Physical Exam Physical Exam: The patient is awake, alert and oriented 3, well developed and well nourished, normocephalic and atraumatic, lying in bed and in no acute distress. HEENT--PERRL, EOMI, mucous membranes and oropharynx mildly dry Neck--supple. No JVD. No bruits. Thyroid normal, trachea midline, no adenopathy. Heart--normal S1 and S2. No murmurs, rubs or gallops. Lungs--clear bilaterally, no respiratory distress, no accessory muscle use. Abdomen--normal bowel sounds and soft. Mild epigastric and left sided abdominal pain Extremities--no cyanosis or clubbing. No edema. Dermatologic--normal skin turgor, normal color, no abnormal lymph nodes, no rash. Neurologic--cranial nerves II through XII grossly intact. Rheumatologic--normal range of motion. Psychiatric--normal affect. Results & Data Results & Data ([facility]) Vital Signs (Past 12 Hours) Vital Signs Temp Pulse Resp BP Pulse Ox 02/03/21 11:00 50 L 18 149/65 H 97 02/03/21 08:17 48 L 18 174/64 H 99 02/03/21 04:00 98.6 F 47 L 16 167/87 H [address] 02/02/21 18:28 CT head/brain wo con CLINICAL HISTORY: Stroke Alert . Left-sided weakness COMPARISON STUDY: No previous studies for comparison. CT DOSE: 537.48 mGy.cm TECHNIQUE: Standard CT of the Brain was performed without IV contrast. A dose lowering technique was utilized adhering to the principles of ALARA. FINDINGS: Extraaxial space: There is no evidence for subdural hematoma. There are no extra-axial fluid collections. Ventricles and cisterns: The ventricles are normal in size and configuration. There is no evidence for midline shift or mass effect. Parenchyma: There is no subarachnoid or intraparenchymal hemorrhage. There is asymmetric low attenuation within the basal ganglia on the right when compared to the left. Presence of an early acute infarct at this site cannot be excluded. There is homogeneous attenuation of the remaining brain MRI would be the study of choice for further evaluation. Parenchyma. There are no gross mass lesions. Osseous structures: There is no evidence for an acute fracture. The visualized paranasal sinuses are clear. The mastoid air cells are clear bilaterally. Soft tissues: There is no evidence for focal soft tissue swelling. IMPRESSION: Asymmetric low attenuation within the basal tendon on the right when compared to the left. The presence of an early acute infarct at the site cannot be excluded. ACT 112: Negative or not required by law. Electronically signed by: Francisco Moore M.D. 02/02/2021 6:54 PM Head CTA 02/02/21 22:59 CT ANGIOGRAM OF THE BRAIN; CT ANGIOGRAM OF THE NECK CLINICAL HISTORY: Strokelike symptoms. COMPARISON STUDY: Unenhanced CT of the brain performed earlier the same day 02/02/2021. TECHNIQUE: Following the IV administration of 120 of Optiray 320, CT angiogram of the head and neck was performed from the aortic arch to the vertex. Images are reviewed in the axial, sagittal, and coronal planes. 3-D MIPS images are created and assessed. IV contrast was administered without complication. All measurements were calculated based on NASCET criteria. A dose lowering technique was utilized adhering to the principles of ALARA. CT DOSE: 535.28 mGy.cm FINDINGS: Brain parenchyma: There is age-related involutional change noting mild subcortical and periventricular microangiopathic disease. There is no evidence of hemorrhage, mass effect, or acute territorial ischemia noting angiographic phase technique. There is an 11 mm enhancing extra-axial lesion along the right parietal convexity seen on axial image #185. This is typical for a meningioma. The ventricles, sulci, and cisterns are prominent secondary to involutional change. Camp-white matter differentiation is preserved. No extra-axial fluid collection is seen. Thoracic aorta: There is atherosclerotic calcification of the thoracic aorta. Visualized portions of the thoracic aorta are normal in caliber. The aortic arch demonstrates bovine variant anatomy. Right carotid arterial system: The right common carotid artery is widely patent, as are the right internal and external carotid arteries. Calcified plaque is noted in the carotid bulb. Left carotid arterial system: The left common carotid artery is widely patent, as are the left internal and external carotid arteries. Mild plaque is seen in the carotid bulb. Vertebral arteries: The vertebral arteries are widely patent bilaterally and codominant. Subclavian arteries: Widely patent bilaterally. Intracranial vasculature: The [place] is developmentally complete. There is mild atherosclerotic calcification of the cavernous carotid arteries. The internal carotid arteries are patent at the skull base, as are the anterior and middle cerebral arteries bilaterally. The vertebrobasilar system and posterior cerebral arteries are widely patent. The vertebral arteries are codominant. There is no aneurysm, high-grade stenosis, or focal vessel cut off seen throughout the intracranial circulation. Jugular veins: Patent bilaterally. Dural sinuses: Patent. Lung apices: Partially visualized upper lobe lung parenchyma appears clear. Soft tissues: The visualized pharyngeal soft tissues are normal in appearance noting angiographic phase technique. The oropharyngeal airway appears widely patent. The salivary and thyroid glands are normal in appearance. No cervical lymphadenopathy is seen. Skeletal structures: The skeletal structures are osteopenic. The calvarium appears intact. The cervical spine is maintained noting multilevel spondylosis. No lytic or blastic lesion is seen. Orbits: The bony orbits are intact. Orbital contents are normal as visualized noting bilateral ocular lens implants. Sinuses and mastoids: There is trace mucosal thickening in the right maxillary antrum and the left sphenoid sinus. The remaining paranasal sinuses are clear. The mastoid air cells are well pneumatized. IMPRESSION: 1. There is no evidence of hemorrhage, mass effect, or acute territorial ischemia noting angiographic phase technique. 2. Unremarkable CT angiogram of the brain. 3. Unremarkable CT angiogram of the neck. 4. An 11 mm enhancing extra-axial nodule along the right convexity is typical for a meningioma. ACT 112: Negative or not required by law. Electronically signed by: Kaden Crowell M.D. 02/03/2021 7:30 AM Neck CTA 02/02/21 22:59 CT ANGIOGRAM OF THE BRAIN; CT ANGIOGRAM OF THE NECK CLINICAL HISTORY: Strokelike symptoms. COMPARISON STUDY: Unenhanced CT of the brain performed earlier the same day 02/02/2021. TECHNIQUE: Following the IV administration of 120 of Optiray 320, CT angiogram of the head and neck was performed from the aortic arch to the vertex. Images are reviewed in the axial, sagittal, and coronal planes. 3-D MIPS images are created and assessed. IV contrast was administered without complication. All measurements were calculated based on NASCET criteria. A dose lowering technique was utilized adhering to the principles of ALARA. CT DOSE: 535.28 mGy.cm FINDINGS: Brain parenchyma: There is age-related involutional change noting mild subcortical and periventricular microangiopathic disease. There is no evidence of hemorrhage, mass effect, or acute territorial ischemia noting angiographic phase technique. There is an 11 mm enhancing extra-axial lesion along the right parietal convexity seen on axial image #185. This is typical for a meningioma. The ventricles, sulci, and cisterns are prominent secondary to involutional change. Camp-white matter differentiation is preserved. No extra-axial fluid collection is seen. Thoracic aorta: There is atherosclerotic calcification of the thoracic aorta. Visualized portions of the thoracic aorta are normal in caliber. The aortic arch demonstrates bovine variant anatomy. Right carotid arterial system: The right common carotid artery is widely patent, as are the right internal and external carotid arteries. Calcified plaque is noted in the carotid bulb. Left carotid arterial system: The left common carotid artery is widely patent, as are the left internal and external carotid arteries. Mild plaque is seen in the carotid bulb. Vertebral arteries: The vertebral arteries are widely patent bilaterally and codominant. Subclavian arteries: Widely patent bilaterally. Intracranial vasculature: The [place] is developmentally complete. There is mild atherosclerotic calcification of the cavernous carotid arteries. The internal carotid arteries are patent at the skull base, as are the anterior and middle cerebral arteries bilaterally. The vertebrobasilar system and posterior cerebral arteries are widely patent. The vertebral arteries are codominant. There is no aneurysm, high-grade stenosis, or focal vessel cut off seen throughout the intracranial circulation. Jugular veins: Patent bilaterally. Dural sinuses: Patent. Lung apices: Partially visualized upper lobe lung parenchyma appears clear. Soft tissues: The visualized pharyngeal soft tissues are normal in appearance noting angiographic phase technique. The oropharyngeal airway appears widely patent. The salivary and thyroid glands are normal in appearance. No cervical lymphadenopathy is seen. Skeletal structures: The skeletal structures are osteopenic. The calvarium appears intact. The cervical spine is maintained noting multilevel spondylosis. No lytic or blastic lesion is seen. Orbits: The bony orbits are intact. Orbital contents are normal as visualized noting bilateral ocular lens implants. Sinuses and mastoids: There is trace mucosal thickening in the right maxillary antrum and the left sphenoid sinus. The remaining paranasal sinuses are clear. The mastoid air cells are well pneumatized. IMPRESSION: 1. There is no evidence of hemorrhage, mass effect, or acute territorial ischemia noting angiographic phase technique. 2. Unremarkable CT angiogram of the brain. 3. Unremarkable CT angiogram of the neck. 4. An 11 mm enhancing extra-axial nodule along the right convexity is typical for a meningioma. ACT 112: Negative or not required by law. Electronically signed by: Kaden Crowell M.D. 02/03/2021 7:30 AM Brain MRI 02/03/21 01:57 MR brain wo con HISTORY: 70 years-old Female CVA acute strokelike symptoms COMPARISON: Head CT, CTA head and neck 02/02/2021 TECHNIQUE: Multiplanar multisequence MRI of the brain was obtained without the use of IV contrast. FINDINGS: There is a 9 mm focus of restricted diffusion within the periventricular right frontal lobe on image 14 series 4 which demonstrates decreased signal on the ADC map. 8 mm focus of restricted diffusion involves the cortex of the left occipital lobe on image 10. No acute or subacute territorial infarct. No pathologic blooming artifact. No acute intracranial hemorrhage, midline shift, abnormal extra axial collection, hydrocephalus or intra-axial mass. 11 mm extra- axial lesion adjacent to the right parietal lobe which 17 series 5 correlates with the lesion described on the recent CT head. Age-related involutional changes. Moderate to extensive T2/FLAIR hyperintensities are noted throughout the white matter. Cerebral venous sinuses and major arterial flow voids appear patent. Mastoid air cells are clear. Minimal mucosal thickening of the paranasal sinuses. The skull and soft tissues are unremarkable. Prior bilateral lens repair. IMPRESSION: 1. Subcentimeter acute infarcts of the periventricular right frontal lobe and left occipital lobe. Correlation with echocardiogram recommended to exclude a proximal embolic source. 2. No acute intracranial hemorrhage. 3. Moderate to extensive chronic microvascular ischemic disease. 4. 11 mm probable meningioma is again noted adjacent to the right parietal lobe. ACT 112: Negative or not required by law. The above report was generated using voice recognition software. It may contain grammatical, syntax or spelling errors. Electronically signed by: Edwar Gomez M.D. 02/03/2021 7:40 AM PG Care Time/CCT Total # of Minutes Spent Total Time Spent with Patient: Total time spent is greater than 50% in coordination of care (as documented) at patient's floor/unit and/or counseling patient: Coding Level of Care Code 56983 Subseq Hosp Care Lvl 2 Diagnoses Left-sided weakness R53.1 Cerebrovascular disease I67.9 CAD (coronary artery disease) I25.10 Hypertension I10 Hypercholesterolemia E78.00 PVD (peripheral vascular disease) I73.9
[2021-02-03] MEDS ORDERED: ATORVASTATIN 40 MG TAB PO SCH (21:00)
[2021-02-03] MEDS ORDERED: ASPIRIN 81 MG ECTAB PO SCH (21:00)
[2021-02-04 06:23] LABS: Basophils # (auto) 0.03 K/uL (0-0.2); Basophils % (auto) 0.4 %; Eosinophils # (auto) 0.17 K/uL (0-0.5); Eosinophils % (auto) 2.4 %; Hemoglobin 14.8 g/dL (12.0-16.0); Immature Granulocytes # (auto) 0.02 K/uL (0.00-0.02); Immature Granulocytes % (auto) 0.3 %; Lymphocytes # (auto) 2.31 K/uL (1.2-3.4); Lymphocytes % (auto) 32.9 %; Mean Corpuscular Hemoglobin 30.9 pg (25-34); Mean Corpuscular Hgb Conc 32.9 g/dL (32-36); Mean Corpuscular Volume 93.9 fL (80-100); Mean Platelet Volume 11.1 fL (7.4-10.4); Monocytes # (auto) 0.54 K/uL (0.11-0.59); Monocytes % (auto) 7.7 %; Neutrophils # (auto) 3.96 K/uL (1.4-6.5); Neutrophils % (auto) 56.3 %; Platelet Count 197 K/uL (130-400); RDW Coefficient of Variation 14.3 % (11.5-14.5); RDW Standard Deviation 49.5 fL (36.4-46.3); Red Blood Count 4.79 M/uL (4.2-5.4); White Blood Count 7.03 K/uL (4.8-10.8)
[2021-02-04 06:59] LABS: Alanine Aminotransferase 16 U/L (12-78); Albumin Level 2.7 gm/dl (3.4-5.0); Aspartate Aminotransferase 16 U/L (15-37); BUN Creatinine Ratio 22.8 (10-20); Blood Urea Nitrogen 18 mg/dl (7-18); Calcium 8.5 mg/dl (8.5-10.1); Carbon Dioxide 25 mmol/L (21-32); Chloride 109 mmol/L (98-107); Creatinine Clr Calc Pharmacy 59.8 ml/min; Est GFR (African American) 85.4 ml/min; Est GFR (Non-African American) 73.7 ml/min; Glucose 94 mg/dl (70-99); Potassium 3.5 mmol/L (3.5-5.1); Sodium 141 mmol/L (136-145)
[2021-02-04 07:03] LABS: Albumin Globulin Ratio 0.7 (0.9-2); Alkaline Phosphatase 78 U/L (45-117); Bilirubin,Total 0.8 mg/dl (0.2-1); Globulin 3.7 gm/dl (2.5-4.0); Total Protein 6.4 gm/dl (6.4-8.2); Troponin I < 0.015 ng/ml (0-0.045)
[2021-02-04] MEDS ORDERED: CLOPIDOGREL BISULFATE 75 MG TAB PO SCH (09:00)
[2021-02-04] MEDS: METOPROLOL SUCC 50MG EXT REL TAB PO SCH (09:30)
[2021-02-04] MEDS: ENOXAPARIN INJ 30 MG/0.3 ML SYR SQ SCH (09:30)
[2021-02-04] MEDS: amLODIPine BESYLATE 5 MG TAB PO SCH (09:30)
[2021-02-04] MEDS: lisinopril 40 MG TAB PO SCH (09:30)
[2021-02-04] MEDS ORDERED: STROKE PATIENT DISCHARGE STA (09:56)
--- NOTE | 2021-02-04 12:05 | Discharge Summary ---
Date of Service February 04, 2021 Admission HPI Per Admitting Provider The patient is a 70-year-old female with a past medical history including hypercholesterolemia, hypertension, PVD, cerebrovascular disease, CAD and arthritis. She presents to the emergency department more than 24 hours after the development of left upper extremity greater than lower extremity weakness, with symptoms significantly improved, with some residual left upper extremity weakness. CT of head without contrast question early infarct in the right basal ganglia. CTA head neck is not ordered and pending Of note, the patient Does continue to smoke three quarters of a pack of cigarettes daily Principal Diagnosis Acute stroke Discharge Exam The patient is awake, alert and oriented 3, well developed and well nourished, normocephalic and atraumatic, lying in bed and in no acute distress. HEENT--PERRL, EOMI, mucous membranes and oropharynx mildly dry Neck--supple. No JVD. No bruits. Thyroid normal, trachea midline, no adenopathy. Heart--normal S1 and S2. No murmurs, rubs or gallops. Lungs--clear bilaterally, no respiratory distress, no accessory muscle use. Abdomen--normal bowel sounds and soft. Mild epigastric and left sided abdominal pain Extremities--no cyanosis or clubbing. No edema. Dermatologic--normal skin turgor, normal color, no abnormal lymph nodes, no rash. Neurologic--cranial nerves II through XII grossly intact. Rheumatologic--normal range of motion. Psychiatric--normal affect. Discharge Data Allergies Allergy/AdvReac Type Severity Reaction Status Date / Time Penicillins Allergy Mild RASH WHEN Verified 02/02/21 22:46 HAD INJECTION CHILD- CAN TAKE PILLS Consultations 02/02/21 23:25 ED Decision to Admit Stat 02/03/21 01:57 Consult Neurology Routine Ordered Studies 02/02/21 18:28 CT head/brain wo con Stat 02/02/21 22:59 CT angio head w con Urgent CT angio neck with con Urgent 02/03/21 01:57 MR brain wo con Routine Hospital Course (1) Cerebrovascular disease: Patient presents with left sided weakness, which improved CT head done showed early infarct in the right basal ganglia MRI brain was done which showed a subcentimeter acute infarcts of the periventricular right frontal lobe and left occipital lobe Currently on Plavix and Aspirin ECHO has been done, EF 55%, essentially normal (2) Left-sided weakness: Likely due to acute stroke Weakness has improved Physical Therapy recommends rolling walker, but she does not want it (3) CAD (coronary artery disease): CAD/hypertension- Continue amlodipine, aspirin, lisinopril and metoprolol succinate (4) Hypertension: Permissive HTN Keep BP around systolic 140-160 (5) Hypercholesterolemia: Continue Lipitor 80 mg daily Check a fasting lipid panel and hemoglobin A1c (6) PVD (peripheral vascular disease): No new symptoms, treat along with CAD and CVD Discharge home today, Was seen by PT who recommended rolling wheelchair, but patient declined Total Time Total Time Spent Total Time Spent (In Minutes): 35 min Discharge Plan Discharge Items Patient Disposition: Home - Self-Care Reason For Visit: CVA Discharge Diagnosis: Stroke Condition on Discharge: Good Activity: Resume your previous activity Non-emergency contact: Primary Care Provider Call non-emergency contact if: you have any medication questions and your symptoms worsen Follow-up/Referrals: Robb Fernando MD [Primary Care Provider] - Diet: Regular Addtl Attending Provider Instructions: Our case management will reach out to you on Saturday to make arrangements for a 30 day cardiac rehabilitation specialist Pending Studies at Discharge: No Stand-Alone Forms: Medications to Prevent Stroke, [email or web address], Smoking Cessation Medications and DC Order Prescriptions: New clopidogrel 75 mg Tablet 75 mg PO QAM Qty: 30 RF: 0 Continued aspirin [Adult Low Dose Aspirin] 81 mg tablet,delayed release (DR/EC) 81 mg PO HS RF: 0 diclofenac sodium 75 mg tablet,delayed release (DR/EC) 75 mg PO TID RF: 0 amlodipine 5 mg tablet 5 mg PO DAILY Qty: 90 RF: 3 metoprolol succinate 50 mg tablet extended release 24 hr 50 mg PO DAILY Qty: 90 RF: 3 lisinopril 40 mg tablet 40 mg PO DAILY Qty: 90 RF: 3 atorvastatin 80 mg tablet 80 mg PO HS RF: 0 Discharge Orders: Discharge Order (Routine); Ordered 02/04/21 Ordered By: Angel Peters/Other Patient Handouts: A1C, Prediabetes, 5 Steps for Eating Healthier Admission Data Admit Date/Time: 02/02/21 23:32 Attending Provider: Angel Azar Admit Provider: Britton Oden Primary Care Provider: Robb Fernando Other Providers: Tereso Kim ; Britton Oden Coding Level of Care Code D/C DAY MANAGEMENT >30 MINS Diagnoses Cerebrovascular disease I67.9 Left-sided weakness R53.1 CAD (coronary artery disease) I25.10 Hypertension I10 Hypercholesterolemia E78.00 PVD (peripheral vascular disease) I73.9
== END 2021-02-04 13:30 | disposition home or self-care (01) | DRG 65 ==
LOC: EDINP 17:27 → ED 17:27 → SUATTDRO 23:32 → 2N 02-03 01:52

== ENCOUNTER 2021-05-04 17:09 | Inpatient (IN) ==
--- NOTE | 2021-05-04 17:50 | XRay Report ---
XR chest one view AP CLINICAL HISTORY: Chest Pain. COMPARISON STUDY: 03/19/2021 TECHNIQUE: 1 view of the chest FINDINGS: Single frontal view of the chest demonstrates the heart size to be mildly enlarged which may be accen tuated by the decreased inspiration. There is a decreased inspiratory effort with elevation of the hemidiaphragms and crowding of the bron chovascular markings at the lung bases and centrally. There is left basilar atelectasis. The lungs ar e otherwise clear of alveolar opacities. There is evidence for small left pleural effusion. There is no evidence for right pleural effusion. There is no evidence for vascular congestion. There is no acu te osseous pathology. IMPRESSION: Decreased inspiration with small left pleural effusion and evidence for left basilar atel ectasis. ACT 112: Negative or not required by law. Electronically signed by: Francisco Moore M.D. 05/04/2021 5:49 PM
[2021-05-04 17:55] LABS: Basophils # (auto) 0.02 K/uL (0-0.2); Basophils % (auto) 0.2 %; Eosinophils # (auto) 0.08 K/uL (0-0.5); Eosinophils % (auto) 0.9 %; Hematocrit (blood only) 44.7 % (37-47); Hemoglobin 13.6 g/dL (12.0-16.0); Immature Granulocytes # (auto) 0.01 K/uL (0.00-0.02); Immature Granulocytes % (auto) 0.1 %; Lymphocytes # (auto) 1.99 K/uL (1.2-3.4); Lymphocytes % (auto) 22.2 %; Mean Corpuscular Hgb Conc 30.4 g/dL (32-36); Mean Platelet Volume 10.5 fL (7.4-10.4); Monocytes % (auto) 8.9 %; Neutrophils # (auto) 6.05 K/uL (1.4-6.5); Neutrophils % (auto) 67.7 %; Nucleated RBC # (auto) 0.16 K/uL (0-0); Nucleated RBC % (auto) 1.7 %; Platelet Count 293 K/uL (130-400); RDW Coefficient of Variation 18.1 % (11.5-14.5); RDW Standard Deviation 60.7 fL (36.4-46.3); Red Blood Count 4.86 M/uL (4.2-5.4); White Blood Count 8.95 K/uL (4.8-10.8)
[2021-05-04 18:06] LABS: INR 1.4 (0.9-1.1); Partial Thromboplastin Time 27.4 Seconds (21.0-31.0); Prothrombin Time 13.6 Seconds (9.0-12.0)
[2021-05-04 18:35] LABS: Alanine Aminotransferase 58 U/L (7-52); Albumin Globulin Ratio 1.3 (0.9-2); Albumin Level 3.6 gm/dl (3.4-5.0); Alkaline Phosphatase 115 U/L (34-104); Anion Gap 11 (3-11); Aspartate Aminotransferase 30 U/L (13-39); BUN Creatinine Ratio 21.8 (10-20); Bilirubin,Total 0.8 mg/dl (0.2-1.0); Blood Urea Nitrogen 44 mg/dl (6-23); Calcium 9.4 mg/dl (8.5-10.1); Carbon Dioxide 21 mmol/L (21-32); Chloride 107 mmol/L (98-107); Est GFR (African American) 27.9 ml/min; Globulin 2.8 gm/dl (2.5-4.0); Glucose 118 mg/dl (70-99(Fasting)); Potassium 4.9 mmol/L (3.5-5.1); Sodium 139 mmol/L (136-145); Total Protein 6.4 gm/dl (6.0-8.3)
[2021-05-04] MEDS ORDERED: SODIUM CHLORIDE 0.9% 1000ML 500 ML IV ONE (21:41)
--- NOTE | 2021-05-04 21:41 | Emergency Department Note ---
History of Present Illness General Chief complaint: Edema To Extremity Stated complaint: CHEST PAIN Time Seen by Provider: 05/04/21 21:10 History of Present Illness Maximum Pain Intensity: 2 70-year-old female presents to the ED with a chief complaint of bilateral lower extremity edema that has been increasing over the past week or so. She also reports some tightness in her chest for the past couple of days as well as some shortness of breath that are worse with exertion. The patient does have a significant cardiovascular and cerebrovascular history. She has had CVA in the past. She also has had GA in the past. She had a DVT in her left upper extremity in late February for which she is currently on Eliquis. No fevers or recent illness. Home Medications Medication Instructions Recorded Confirmed Type atorvastatin 80 mg tablet 80 mg PO HS 02/02/21 05/04/21 History clopidogrel 75 mg tablet 75 mg PO QAM #30 tab 02/04/21 05/04/21 Rx apixaban 5 mg tablet (Eliquis) 5 mg PO BID 05/01/21 05/04/21 History lisinopril 10 mg tablet 10 mg PO DAILY 05/01/21 05/04/21 History metoprolol succinate 100 mg 100 mg PO DAILY 05/01/21 05/04/21 History tablet,extended release 24 hr nitroglycerin 0.4 mg sublingual 0.4 mg SUBLINGUAL DIRECTED PRN 05/01/21 05/04/21 History tablet ondansetron 4 mg disintegrating 4 mg TRANSLINGUAL Q6H PRN 05/01/21 05/04/21 History tablet sennosides 8.6 mg-docusate sodium 1 - 2 tab-cap PO BID PRN #60 tab 05/02/21 05/04/21 Rx 50 mg tablet (Senokot-S) Allergies Allergy/AdvReac Type Severity Reaction Status Date / Time Penicillins Allergy Mild RASH WHEN Verified 05/04/21 21:41 HAD INJECTION CHILD- CAN TAKE PILLS Past Med/Surg History Medical History Atrial fibrillation CAD (coronary artery disease) Hypertension Stroke Social History Smoking Status: Unknown if ever smoked Tobacco Type: Cigarettes Cigarettes Per Day: 20; Hx Alcohol Use: No Hx Substance Use: No Preferred Language: Croatian Communication Ability: Effective 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 Beliefs That Will Affect Care: None marital status: Single Current Living Situation: Alone Feels Safe at Home: Yes Assistive Devices: None Review of Systems A total of 10 systems reviewed and were otherwise negative Physical Exam Vital Signs Vital Signs - 24 hr 05/04/21 17:21 Temperature 35.6 C L Temperature Source Temporal Artery Scan Pulse Rate 103 H Respiratory Rate 22 Respiratory Effort / Characteristics Spontaneous Respiratory Depth Normal Blood Pressure 113/78 Blood Pressure Mean 89 Pulse Oximetry 98 Oxygen Delivery Method Room Air Sepsis Recent Fever Within 48 Hours No Sepsis New/Unexplained Change in Mental Status No Sepsis Action Taken by Nursing No Action Required CONSTITUTIONAL/VITAL SIGNS: Reviewed / noted above. GENERAL: Non-toxic in appearance. INTEGUMENTARY: Warm, dry, and [place]. HEAD: Normocephalic. EYES: without scleral icterus or trauma. ENT/OROPHARYNX: clear and moist. LYMPHADENOPATHY/NECK: Is supple without lymphadenopathy or meningismus. RESPIRATORY: Clear to auscultation bilaterally. No increased work of breathing. CARDIOVASCULAR: Regular rate and rhythm. GI/ABDOMEN: Soft and nontender. No organomegaly or pulsatile mass. EXTREMITIES: Warm and well perfused. Bilateral pitting pedal edema. BACK: No CVA tenderness. NEUROLOGICAL: Intact without focal deficits. PSYCHIATRIC: normal affect. MUSCULOSKELETAL: Normally developed with good muscle tone. TRIAGE NURSING DOCUMENTATION REVIEWED. Medical Decision Making Differential Diagnosis The differential that was considered includes acute myocardial infarction, acute coronary syndrome, myocarditis, pericarditis, pericardial effusions /tamponade, esophageal perforation, thoracic aortic dissection, pulmonary embolism, pneumonia, pneumothorax, pancreatitis, shingles, acute cholecystitis, perforated abdominal viscus. Medical Records Attestation: I reviewed the patient's medical records. Home Medications Current Medication List: was personally reviewed by me Laboratory Data Attestation: I reviewed the patient's lab results. Result diagrams: 05/04/21 17:45 05/04/21 17:45 Lab Results 05/04/21 05/04/21 05/04/21 Range/Units 17:45 17:45 17:45 WBC 8.95 (4.8-10.8) K/uL RBC 4.86 (4.2-5.4) M/uL Hgb 13.6 (12.0-16.0) g/dL Hct 44.7 (37-47) % MCV 92.0 (80-100) fL MCH 28.0 (25-34) pg MCHC 30.4 L (32-36) g/dL RDW Std Deviation 60.7 H (36.4-46.3) fL RDW Coeff of Agusto 18.1 H (11.5-14.5) % Plt Count 293 (130-400) K/uL MPV 10.5 H (7.4-10.4) fL Immature Gran % (Auto) 0.1 % Neut % (Auto) 67.7 % Lymph % (Auto) 22.2 % Isabella % (Auto) 8.9 % Eos % (Auto) 0.9 % Baso % (Auto) 0.2 % Neut # (Auto) 6.05 (1.4-6.5) K/uL Lymph # (Auto) 1.99 (1.2-3.4) K/uL Isabella # (Auto) 0.80 H (0.11-0.59) K/uL Eos # (Auto) 0.08 (0-0.5) K/uL Baso # (Auto) 0.02 (0-0.2) K/uL Immature Gran # (Auto) 0.01 (0.00-0.02) K/uL Absolute Nucleated RBC 0.16 H (0-0) K/uL Nucleated RBC % (auto) 1.7 % PT 13.6 H (9.0-12.0) Seconds INR 1.4 H (0.9-1.1) APTT 27.4 (21.0-31.0) Seconds PTT Ratio 1.0 Sodium 139 (136-145) mmol/L Potassium 4.9 (3.5-5.1) mmol/L Chloride 107 (98-107) mmol/L Carbon Dioxide 21 (21-32) mmol/L Anion Gap 11 (3-11) BUN 44 H (6-23) mg/dl Creatinine 2.02 H (0.6-1.2) mg/dl Est Cr Clr Drug Dosing Not Reportable Est GFR ( Amer) 27.9 ml/min Est GFR (Non-Af Amer) 24.0 ml/min BUN/Creatinine Ratio 21.8 H (10-20) Glucose 118 H (70-99(Fasting)) mg/dl Calcium 9.4 (8.5-10.1) mg/dl Total Bilirubin 0.8 (0.2-1.0) mg/dl AST 30 (13-39) U/L ALT 58 H (7-52) U/L Alkaline Phosphatase 115 H (34-104) U/L Troponin I 0.07 H* (0-0.04) ng/ml Total Protein 6.4 (6.0-8.3) gm/dl Albumin 3.6 (3.4-5.0) gm/dl Globulin 2.8 (2.5-4.0) gm/dl Albumin/Globulin Ratio 1.3 (0.9-2) Imaging Data Radiologist's Impression: Chest X-Ray 05/04/21 17:24 XR chest one view AP CLINICAL HISTORY: Chest Pain. COMPARISON STUDY: 03/19/2021 TECHNIQUE: 1 view of the chest FINDINGS: Single frontal view of the chest demonstrates the heart size to be mildly enlarged which may be accentuated by the decreased inspiration. There is a decreased inspiratory effort with elevation of the hemidiaphragms and crowding of the bronchovascular markings at the lung bases and centrally. There is left basilar atelectasis. The lungs are otherwise clear of alveolar opacities. There is evidence for small left pleural effusion. There is no evidence for right pleural effusion. There is no evidence for vascular c ongestion. There is no acute osseous pathology. IMPRESSION: Decreased inspiration with small left pleural effusion and evidence for left basilar atelectasis. ACT 112: Negative or not required by law. Electronically signed by: Francisco Moore M.D. 05/04/2021 5:49 PM ECG Data Attestation: I personally reviewed and interpreted this ECG as follows: Additional Comments: Twelve-lead EKG: Per my interpretation shows atrial fibrillation at a rate of 105. No ST elevation. Septal Q waves are noted. No PVCs. Normal QTC. MDM Narrative 70-year-old female presents to the ED with a chief complaint of bilateral lower extremity edema that has been worsening over the past week or so. She also has reported some mild substernal chest discomfort and some shortness of breath both with her worsened with exertion over the past 2 days. Her troponin is mildly elevated. Her twelve-lead EKG shows atrial fibrillation. She is chronically on Eliquis. CBC was unremarkable. Chemistry panel shows some acute kidney injury compared to baseline. Troponin is mildly elevated.The patient was given a small fluid bolus as well as a nitro sublingual for chest discomfort. She will be seen by the hospitalist for further inpatient evaluation and care. Impression & Plan Non-ST elevation (NSTEMI) myocardial infarction, Acute kidney injury Discharge Plan Visit Data Chief Complaint: Edema To Extremity Stated Complaint: CHEST PAIN ED Provider: Sagar Le Discharge Problem: Non-ST elevation (NSTEMI) myocardial infarction, Acute kidney injury Patient Disposition: Being Evaluated by Hospitalist Forms Stand Alone Forms: [facility], Virtual Emergency Department, Important Visit Information Prescriptions Prescriptions: No Action atorvastatin 80 mg tablet 80 mg PO HS RF: 0 clopidogrel 75 mg Tablet 75 mg PO QAM Qty: 30 RF: 0 metoprolol succinate 100 mg tablet extended release 24 hr 100 mg PO DAILY RF: 0 lisinopril 10 mg tablet 10 mg PO DAILY RF: 0 nitroglycerin 0.4 mg tablet, sublingual 0.4 mg sublingual DIRECTED PRN (Reason: Chest Pain) RF: 0 ondansetron 4 mg tablet,disintegrating 4 mg translingual Q6H PRN (Reason: Nausea) RF: 0 Eliquis 5 mg tablet 5 mg PO BID RF: 0 sennosides-docusate sodium [Senokot-S] 8.6-50 mg tablet 1 - 2 tab-cap PO BID PRN (Reason: constipation) Qty: 60 RF: 2 Referrals Referrals: Robb Fernando MD [Primary Care Provider] -
[2021-05-04] MEDS ORDERED: NITROGLYCERIN SL 0.4 MG/TAB TAB SL STA (21:46)
--- NOTE | 2021-05-04 22:43 | History & Physical Report ---
Date of Service May 04, 2021 Assessment & Plan (1) Dyspnea: Plan: 70yo female with multiple medical comorbidities, CAD with recent anterior wall STEMI secondary to LAD thrombus presenting with 2 days of progressive COY as well as substernal chest heaviness. Patient also with worsening bilateral LE edema and weeping for her legs. Labs are significant for elevation of troponin of 0.07 --> 0.07 as well as elevated BNP of 1803. CXR with effusions present. Ddx to include acute exacerbation of CHF with volume overload, must also consider ACS given recent history. Presently CP free -Admit to medical with telemetry -Repeat troponin with AM labs -EKG as needed for chest pain -Nitro as needed for chest pain -Check 2D echo -Lasix 40mg IV - monitor I/Os, daily weights, chemistry and renal function (2) CAD (coronary artery disease): Plan: Patient with CAD s/p anterior wall STEMI secondary to large LAD thrombus s/p successful thrombectomy performed at [facility] on 03/19/21. No occlusive lesion noted in LAD - no stent placed. Chest heaviness and COY as described above - most likely secondary to volume overload, acute exacerbation of CHF. Possibly secondary to angina. EKG changes noted are similar to prior study from [facility]. Troponin is flat x 2 reads at 0.07 -Continue Plavix, Atorvastatin, Metoprolol -Repeat troponin in AM -Consider Cardiology consultation (3) CHF (congestive heart failure): Plan: Echo performed at [facility] on 03/24/21 with normal LV size with moderate to severely reduced systolic function. EF 25-30%. LAD and RCA territory infarct. No concentric LVH. No LV apical thrombus. Severe LA dilation. Multilobed MASON with large mobile thrombus (2cm) seated deep inside a trabeculation attached to the posterior wall of the MASON near the entry site. -Lasix 40mg IV given - monitor UOP, BUN/Cr/Electrolytes -Continue Metoprolol -Continue Apixaban - patient with large mobile thrombus in the left atrial appendage -Holding Lisinopril for now (4) Acute kidney injury: Plan: Elevation of BUN and Cr to 44 and 2.02, respectively. Possibly secondary to poor perfusion in setting of acutely decompensated CHF -Lasix administered -Monitor UOP, electrolytes and renal function in response to diuresis. If tolerated would repeat dosing of Lasix in AM -Avoid nephrotoxic agents -Renal dosing where needed -Hold Lisinopril for now (5) Hypertension: Plan: Blood pressure stable at present -Continue metoprolol -Hold Lisinopril for now -Monitor (6) Atrial fibrillation: Plan: Patient with atrial fibrillation - most likely has had three cardioembolic event - acute CVA, LUE arterial thrombus and LAD thrombus. Presently in atrial fibrillation with HR of 103. Anticoagulated on Eliquis -Continue Eliquis. Have ordered evening dose -Continue Metoprolol -Goal HR <110 while inpatient Plan: F/E/N - Diuresis with Lasix, monitor electrolytes, AHA diet as tolerated Ppx - On Eliquis anticoagulation Code - Full per discussion with patient Dispo - Admit to medical with telemetry History of Present Illness Chief Complaint: edema, SOB, chest pressure Primary Care Provider: Robb Fernando MD Sarah Ramírez is a 70yo female with history of CAD, HTN, HLP, NSVT and CHF. Patient presented to [facility] on 03/19/21 with ischemia of LUE. She was subsequently transferred to [facility] where she underwent successful embolectomy of LUE arterial thrombus with fasciotomy. Patient's course was complicated by post-operative STEMI. She had a cardiac catheterization performed which revealed a large occlusive thrombus of the mid-LAD which was successfully treated with thrombectomy. Patient suffered ICM, HFrEF following her STEMI with EF of 30%. Patient has been doing fairly well at home. However, she presents with complaint of increased bilateral LE edema over the last several days with skin weeping noted today. She has had significant progressive COY, becomes short of breath with minimal exertion in her home. She is also complaining of substernal chest heaviness and tightness that occurs mostly with exertion and is relieved with rest. The chest heaviness has been ongoing for the last 2 days as well. She notes that it has become more severe. She does not have symptoms at rest. No additional complaints at this time. Patient denies abdominal pain, nausea, vomiting, diarrhea or constipation. She has some intermittent chills, otherwise no complaints. Patient afebrile, tachycardic in atrial fibrillation with rate of 103, otherwise stable, NAD Presently is without chest pain ER Course: Lasix 40mg IV Allergies Allergy/AdvReac Type Severity Reaction Status Date / Time Penicillins Allergy Mild RASH WHEN Verified 05/04/21 21:41 HAD INJECTION CHILD- CAN TAKE PILLS Home Medications Medication Instructions Recorded Confirmed Type atorvastatin 80 mg tablet 80 mg PO HS 02/02/21 05/04/21 History clopidogrel 75 mg tablet 75 mg PO QAM #30 tab 02/04/21 05/04/21 Rx apixaban 5 mg tablet (Eliquis) 5 mg PO BID 05/01/21 05/04/21 History lisinopril 10 mg tablet 10 mg PO DAILY 05/01/21 05/04/21 History metoprolol succinate 100 mg 100 mg PO DAILY 05/01/21 05/04/21 History tablet,extended release 24 hr nitroglycerin 0.4 mg sublingual 0.4 mg SUBLINGUAL DIRECTED PRN 05/01/21 05/04/21 History tablet ondansetron 4 mg disintegrating 4 mg TRANSLINGUAL Q6H PRN 05/01/21 05/04/21 Hist ory tablet sennosides 8.6 mg-docusate sodium 1 - 2 tab-cap PO BID PRN #60 tab 05/02/21 05/04/21 Rx 50 mg tablet (Senokot-S) Past Med/Surg History Medical History (Updated 05/05/21 @ 01:34 by Minal Adler DO) Atrial fibrillation Atrial flutter CAD (coronary artery disease) s/p anterior wall STEMI CHF (congestive heart failure) Coronary artery thrombosis s/p thrombectomy 03/19/21 Hypercholesterolemia Hypertension Stroke Thrombus of left atrial appendage Surgical History History of embolectomy left brachial artery, axillary artery radial artery and ulnar artery 03/19/21 History of fasciotomy left forearm 03/19/21 Family History (Updated 05/05/21 @ 01:09 by Minal Adler DO) Other Cancer Social History Smoking Status: Former smoker Tobacco Type: Cigarettes Cigarettes Per Day: 10; Second Hand Exposure: No; Do You Dip or Chew Tobacco: No; Hx Alcohol Use: No Hx Substance Use: No Preferred Language: Croatian Communication Ability: Effective Frame Feeder Required: No Beliefs That Will Affect Care: None marital status: Single Current Living Situation: Alone Other Information That Helps Us Care for You: No Feels Safe at Home: Yes Safety Concerns: Feels Safe At This Time Assistive Devices: Cane Review of Systems Review of Systems: All systems reviewed & are unremarkable except as noted in HPI & below Physical Exam Physical Exam: General: patient resting comfortably, NAD, non-toxic in appearance, AA&O x 4 Skin: warm, dry, intact, no rashes or lesions, surgical site on LUE well heali ng, no bleeding/drainage or dehiscence HEENT: NC/AT, PERRL, EOMI, anicteric sclera, conjunctiva without injection, external ear normal to inspection and nontender, nares patent, moist mucus membranes, dentition intact, no oropharyngeal lesions, neck supple, trachea midline, no LAD, no thyromegaly, no JVD Heart: +S1/S2, irregularly irregular, no m/r/g Lungs: equal air entry bilaterally, no rales/rhonchi/wheezes Abd: +BS, soft, NT/ND, no masses/organomegaly/ascites Ext: warm, 2+ pulses in UE/LE bilaterally, no clubbing/cyanosis, 3+ pitting edema of bilateral LE, sacral edema Neuro: nonfocal, patient AA&O x 4, speech intact, no facial droop, moving all extremities on command with equal strength 5/5 Results & Data Results & Data ([facility]) Vital Signs (Past 12 Hours) Vital Signs Temp Pulse Resp BP Pulse Ox 05/04/21 17:21 35.6 C L 103 H 22 113/78 98 Laboratory Results Laboratory Results WBC 8.95 K/uL (4.8-10.8) 05/04/21 17:45 RBC 4.86 M/uL (4.2-5.4) 05/04/21 17:45 Hgb 13.6 g/dL (12.0-16.0) 05/04/21 17:45 Hct 44.7 % (37-47) 05/04/21 17:45 MCV 92.0 fL (80-100) 05/04/21 17:45 MCH 28.0 pg (25-34) 05/04/21 17:45 MCHC 30.4 g/dL (32-36) L 05/04/21 17:45 RDW Std Deviation 60.7 fL (36.4-46.3) H 05/04/21 17:45 RDW Coeff of Agusto 18.1 % (11.5-14.5) H 05/04/21 17:45 Plt Count 293 K/uL (130-400) 05/04/21 17:45 MPV 10.5 fL (7.4-10.4) H 05/04/21 17:45 Immature Gran % (Auto) 0.1 % 05/04/21 17:45 Neut % (Auto) 67.7 % 05/04/21 17:45 Lymph % (Auto) 22.2 % 05/04/21 17:45 Crisp % (Auto) 8.9 % 05/04/21 17:45 Eos % (Auto) 0.9 % 05/04/21 17:45 Baso % (Auto) 0.2 % 05/04/21 17:45 Neut # (Auto) 6.05 K/uL (1.4-6.5) 05/04/21 17:45 Lymph # (Auto) 1.99 K/uL (1.2-3.4) 05/04/21 17:45 Crisp # (Auto) 0.80 K/uL (0.11-0.59) H 05/04/21 17:45 Eos # (Auto) 0.08 K/uL (0-0.5) 05/04/21 17:45 Baso # (Auto) 0.02 K/uL (0-0.2) 05/04/21 17:45 Immature Gran # (Auto) 0.01 K/uL (0.00-0.02) 05/04/21 17:45 Absolute Nucleated RBC 0.16 K/uL (0-0) H 05/04/21 17:45 Nucleated RBC % (auto) 1.7 % 05/04/21 17:45 PT 13.6 Seconds (9.0-12.0) H 05/04/21 17:45 INR 1.4 (0.9-1.1) H 05/04/21 17:45 APTT 27.4 Seconds (21.0-31.0) 05/04/21 17:45 PTT Ratio 1.0 05/04/21 17:45 Sodium 139 mmol/L (136-145) 05/04/21 17:45 Potassium 4.9 mmol/L (3.5-5.1) 05/04/21 17:45 Chloride 107 mmol/L (98-107) 05/04/21 17:45 Carbon Dioxide 21 mmol/L (21-32) 05/04/21 17:45 Anion Gap 11 (3-11) 05/04/21 17:45 BUN 44 mg/dl (6-23) H 05/04/21 17:45 Creatinine 2.02 mg/dl (0.6-1.2) H 05/04/21 17:45 Est Cr Clr Drug Dosing Not Reportable 05/04/21 17:45 Est GFR ( Amer) 27.9 ml/min 05/04/21 17:45 Est GFR (Non-Af Amer) 24.0 ml/min 05/04/21 17:45 BUN/Creatinine Ratio 21.8 (10-20) H 05/04/21 17:45 Glucose 118 mg/dl (70-99(Fasting)) H 05/04/21 17:45 Calcium 9.4 mg/dl (8.5-10.1) 05/04/21 17:45 Phosphorus 4.6 mg/dl (2.5-4.9) 05/04/21 17:45 Magnesium 2.3 mg/dl (1.7-2.4) 05/04/21 17:45 Total Bilirubin 0.8 mg/dl (0.2-1.0) 05/04/21 17:45 AST 30 U/L (13-39) 05/04/21 17:45 ALT 58 U/L (7-52) H 05/04/21 17:45 Alkaline Phosphatase 115 U/L (34-104) H 05/04/21 17:45 Troponin I 0.07 ng/ml (0-0.04) H* 05/04/21 22:22 B-Natriuretic Peptide 1803 pg/ml (0-100) H 05/04/21 22:22 Total Protein 6.4 gm/dl (6.0-8.3) 05/04/21 17:45 Albumin 3.6 gm/dl (3.4-5.0) 05/04/21 17:45 Globulin 2.8 gm/dl (2.5-4.0) 05/04/21 17:45 Albumin/Globulin Ratio 1.3 (0.9-2) 05/04/21 17:45 SARS-CoV-2, RNA, NAAT NEGATIVE (NEGATIVE) 05/04/21 21:54 Impressions Chest X-Ray 05/04/21 17:24 XR chest one view AP CLINICAL HISTORY: Chest Pain. COMPARISON STUDY: 03/19/2021 TECHNIQUE: 1 view of the chest FINDINGS: Single frontal view of the chest demonstrates the heart size to be mildly enlarged which may be accentuated by the decreased inspiration. There is a decreased inspiratory effort with elevation of the hemidiaphragms and crowding of the bronchovascular markings at the lung bases and centrally. There is left basilar atelectasis. The lungs are otherwise clear of alveolar opacities. There is evidence for small left pleural effusion. There is no evidence for right pleural effusion. There is no evidence for vascular co ngestion. There is no acute osseous pathology. IMPRESSION: Decreased inspiration with small left pleural effusion and evidence for left basilar atelectasis. ACT 112: Negative or not required by law. Electronically signed by: Francisco Moore M.D. 05/04/2021 5:49 PM ECG Additional Comments: EKG with AF at 105bpm, normal axis, SUS=064, BUs=517, incomplete RBBB, ST changes present in anterior leads V1, V3 ,V4, depressions in I, aVL. Similar to post-cath study from [facility] from 20 Mar 2021. Code Status & VTE Plan VTE Prophylaxis Plan VTE Prophylaxis will be ordered: Yes PG Care Time/CCT Total # of Minutes Spent Total Time Spent with Patient: Total time spent is greater than 50% in coordination of care (as documented) at patient's floor/unit and/or counseling patient: Coding Level of Care Code 08545 Initial Inpt Care Lvl 3 Diagnoses CAD (coronary artery disease) I25.10 CHF (congestive heart failure) I50.9 Acute kidney injury N17.9 Hypertension I10 Hypertension type: primary hypertension Dyspnea R06.00 Atrial fibrillation I48.91 (1) Hypertension Hypertension type: primary hypertension Qualified Code(s): I10 - Essential (primary) hypertension
[2021-05-05] MEDS ORDERED: ACETAMINOPHEN 325 MG TAB PO PRN (00:19)
[2021-05-05] MEDS ORDERED: NITROGLYCERIN SL 0.4 MG/TAB TAB SL PRN (00:19)
[2021-05-05] MEDS ORDERED: FUROSEMIDE INJ 20 MG/2 ML VIAL IV ONE (00:19)
[2021-05-05] MEDS ORDERED: FUROSEMIDE 40 MG/4 ML VIAL IV ONE (00:45)
[2021-05-05 00:53] LABS: Magnesium 2.3 mg/dl (1.7-2.4); Phosphorus 4.6 mg/dl (2.5-4.9)
[2021-05-05] MEDS ORDERED: APIXABAN 2.5 MG TAB PO STA (01:30)
[2021-05-05 06:41] LABS: Basophils # (auto) 0.01 K/uL (0-0.2); Basophils % (auto) 0.1 %; Eosinophils # (auto) 0.03 K/uL (0-0.5); Eosinophils % (auto) 0.4 %; Hematocrit (blood only) 41.7 % (37-47); Hemoglobin 12.5 g/dL (12.0-16.0); Immature Granulocytes # (auto) 0.01 K/uL (0.00-0.02); Immature Granulocytes % (auto) 0.1 %; Lymphocytes # (auto) 1.83 K/uL (1.2-3.4); Lymphocytes % (auto) 23.6 %; Mean Corpuscular Hemoglobin 27.4 pg (25-34); Mean Corpuscular Volume 91.2 fL (80-100); Mean Platelet Volume 10.2 fL (7.4-10.4); Monocytes # (auto) 0.59 K/uL (0.11-0.59); Monocytes % (auto) 7.6 %; Neutrophils % (auto) 68.2 %; Nucleated RBC # (auto) 0.15 K/uL (0-0); Nucleated RBC % (auto) 1.9 %; Platelet Count 271 K/uL (130-400); RDW Coefficient of Variation 18.1 % (11.5-14.5); RDW Standard Deviation 59.8 fL (36.4-46.3); Red Blood Count 4.57 M/uL (4.2-5.4); White Blood Count 7.77 K/uL (4.8-10.8)
[2021-05-05 07:06] LABS: Alanine Aminotransferase 61 U/L (7-52); Albumin Level 3.3 gm/dl (3.4-5.0); Alkaline Phosphatase 104 U/L (34-104); Anion Gap 8 (3-11); Aspartate Aminotransferase 38 U/L (13-39); BUN Creatinine Ratio 24.1 (10-20); Bilirubin Direct 0.3 mg/dl (0-0.2); Bilirubin,Total 0.9 mg/dl (0.2-1.0); Blood Urea Nitrogen 45 mg/dl (6-23); Carbon Dioxide 24 mmol/L (21-32); Chloride 107 mmol/L (98-107); Est GFR (African American) 30.6 ml/min; Est GFR (Non-African American) 26.4 ml/min; Glucose 97 mg/dl (70-99(Fasting)); Potassium 4.7 mmol/L (3.5-5.1); Sodium 139 mmol/L (136-145); Total Protein 5.9 gm/dl (6.0-8.3)
[2021-05-05 07:11] LABS: Troponin I 0.06 ng/ml (0-0.04)
[2021-05-05] MEDS: CLOPIDOGREL BISULFATE 75 MG TAB PO SCH (07:52)
[2021-05-05] MEDS: APIXABAN 5 MG TABLET PO SCH ×2 (07:52→20:03)
[2021-05-05] MEDS: METOPROLOL SUCC 50MG EXT REL TAB PO SCH (07:52)
--- NOTE | 2021-05-05 09:11 | XCELERA ---
[id number]
[2021-05-05 11:30] LABS: Troponin I 0.07 ng/ml (0-0.04)
--- NOTE | 2021-05-05 14:47 | Cardiology Consultation ---
Date of Consultation May 05, 2021 Assessment & Plan (1) Acute HFrEF (heart failure with reduced ejection fraction): (2) Cardiomyopathy: (3) CAD (coronary artery disease): (4) Acute kidney injury: (5) Thrombus of left atrial appendage: (6) Atrial fibrillation: (7) Hypertension: ASSESSMENT/PLAN: 1. Acute heart failure with reduced EF: She appears quite hypervolemic. Discussed diagnosis. Start Lasix 40 mg IV b.i.d.. Adjust diuretics as necessary to achieve adequate diuresis. Would aim for 1-2 L negative fluid balance over the next 24 hours. Low-sodium diet, less than 2000 mg daily. Daily weights. Strict I&Os discussed with her. Recommend heart failure program. 2. Cardiomyopathy: Likely ischemic given chronically occluded RCA and recent LAD STEMI. LV systolic function appears similar to what was described [facility]. Request [facility] records for review. Continue metoprolol succinate 100 mg daily. Recommend Entresto in place of lisinopril. First recommend diuresis and then Entresto if renal function allows. Given significantly reduced EF following STEMI, recommend spironolactone if renal function allows at some point. Given continued severely reduced LV systolic function following STEMI > 40 days ago, consider ICD for primary prevention. This can be further discussed throughout this hospital stay. She will be seen tomorrow by electrophysiology. 3. CAD s/p LAD STEMI and thrombectomy: No angina. Continue anti-platelet therapy. Presumed embolic event in the setting of left atrial appendage thrombus. Chronically occluded RCA. Continue beta-nicol and high-intensity statin therapy. 4. Atrial fibrillation: Likely permanent at this point. Continue anticoagulation for stroke risk reduction as she has shown multiple embolic events in January and February of 2021 (stroke, left upper extremity, LAD thrombus). Continue beta-nicol for rate control. Heart rate adequately controlled. 5. Hypertension: Blood pressure well controlled. Recommend titration of heart failure medications as above over time. 6. Left atrial appendage thrombus: On anticoagulation therapy. 7. Acute kidney injury: Creatinine has trended downward today. Continue to monitor especially in the setting of diuresis. 8. Disposition: Dr. Shukla will be on-call over the weekend. Case will be discussed with him so that he can assist in management of her cardiology care. Plan of care communicated with Dr. Montiel of the primary hospitalist service. Highly complex medical issues. Thank you for allowing me to participate in the care of your patient. Please call for any other questions or concerns. Sincerely, Bret Lopez M.D. History of Present Illness Reason for Consultation: "acute CHF" Requesting Physician: Mookie Montiel Attending Physician: Mookie Montiel History of Present Illness Ms. Ramírez is a very pleasant 70-year-old female with a history significant for CAD, thrombotic LAD STEMI (03/19/21 at [facility]), hypertension, dyslipidemia, left upper extremity embolic event, stroke, atrial fibrillation/flutter, peripheral arterial disease s/p right SFA stent. She reportedly had left atrial appendage thrombus noted on transesophageal echo at [facility] in February of 2021. She has chronically followed with Dr. Leiva for her primary cardiology care. In January of 2021, she suffered a stroke, but states that she has fully recovered. In late February of 2021, she developed acute left upper extremity ischemia and was transferred to [facility] emergency department for emergent embolectomy. She underwent left arm brachial artery cutdown with embolectomy of the left brachial artery, axillary artery, radial artery, and ulnar artery on 03/19/2021. While in the emergency department, [facility] records report that she was noted to be in atrial flutter with variable block. She developed anterior STEMI and was emergently taken to the laboratory apparatus glass blower at [facility] where a large red thrombus was removed from the mid LAD. No residual lesions were noted in the LAD afterwards. She also had a chronically occluded RCA. Although records are not available for review, she reportedly underwent transesophageal echo at [facility] with left atrial appendage thrombus noted. She was discharged home on anticoagulation in the form of Eliquis and anti-platelet therapy in the form of Plavix. Echoes were done at [facility], once again without availability for review but reportedly her EF was 25%. She states that since leaving her she, her lower extremities were quite swollen. She went to [facility] for rehab. Leg swelling continued to occur to the point where her left leg was weeping prior to presentation. She has noted progressively worsening dyspnea with exertion with minimal exertion. She denies orthopnea or PND. She recalls that angina was a substernal chest heaviness. She denies any angina since her STEMI. She tries to maintain a low-sodium diet. She denies melena, hematochezia, hematuria, or other bleeding. She denies syncope, near-syncope, palpitations. She has had the following studies/procedures: 1. Cardiac catheterization 03/19/2021: Mid LAD 100% with long thrombotic area. Distal LAD 55%. Proximal RCA 100%. Underwent LAD thrombectomy without PCI. IVUS confirm no significant stenosis at the site of thrombus. 2. Echo 05/05/2021: Mildly dilated LV. EF 15-20%. Aneurysmal apex. Akinesis of the anteroseptum and mid inferolateral wall. Otherwise, severe global hypokinesis. Normal RV size with moderately reduced systolic function. Mild biatrial dilation. Sclerotic aortic valve. Mild MR. RVSP 38. Review of systems: As above. Review of systems otherwise negative/unremarkab le. Family history: No known premature CAD. Social history: She quit smoking on 03/18/2021 after 52 years of smoking up to 1 pack per day. She denies alcohol or drug abuse. She lives alone. . No children. She was alone in her hospital room. Allergies Allergy/AdvReac Type Severity Reaction Status Date / Time Penicillins Allergy Mild RASH WHEN Verified 05/04/21 21:41 HAD INJECTION CHILD- CAN TAKE PILLS Home Medications Medication Instructions Recorded Confirmed Type atorvastatin 80 mg tablet 80 mg PO HS 02/02/21 05/04/21 History clopidogrel 75 mg tablet 75 mg PO QAM #30 tab 02/04/21 05/04/21 Rx apixaban 5 mg tablet (Eliquis) 5 mg PO BID 05/01/21 05/04/21 History lisinopril 10 mg tablet 10 mg PO DAILY 05/01/21 05/04/21 History metoprolol succinate 100 mg 100 mg PO DAILY 05/01/21 05/04/21 History tablet,extended release 24 hr nitroglycerin 0.4 mg sublingual 0.4 mg SUBLINGUAL DIRECTED PRN 05/01/21 05/04/21 History tablet ondansetron 4 mg disintegrating 4 mg TRANSLINGUAL Q6H PRN 05/01/21 05/04/21 History tablet sennosides 8.6 mg-docusate sodium 1 - 2 tab-cap PO BID PRN #60 tab 05/02/21 05/04/21 Rx 50 mg tablet (Senokot-S) Patient History Medical History (Updated 05/05/21 @ 15:03 by Freddy Lopez MD) Atrial fibrillation Atrial flutter CAD (coronary artery disease) s/p anterior wall STEMI Cardiomyopathy CHF (congestive heart failure) Coronary artery thrombosis s/p thrombectomy 03/19/21 Hypercholesterolemia Hypertension Stroke Thrombus of left atrial appendage Surgical History History of embolectomy left brachial artery, axillary artery radial artery and ulnar artery 03/19/21 History of fasciotomy left forearm 03/19/21 Family History (Updated 05/05/21 @ 01:09 by Minal Adler DO) Other Cancer Social History Smoking Status: Former smoker Tobacco Type: Cigarettes Cigarettes Per Day: 10; Second Hand Exposure: No; Do You Dip or Chew Tobacco: No; Hx Alcohol Use: No Hx Substance Use: No Preferred Language: Greenlandic Communication Ability: Effective Staffing Assistant Required: No Beliefs That Will Affect Care: None marital status: Single Current Living Situation: Alone Other Information That Helps Us Care for You: No Feels Safe at Home: Yes Safety Concerns: Feels Safe At This Time Assistive Devices: Cane and Glasses Physical Exam Physical Exam: Gen.: No acute distress. Alert and oriented. HEENT: Anicteric sclera. Neck: JVD to the mandible sitting 45 upright. No bruits. Normal carotid upstrokes bilaterally. Cardiac: PMI was nondisplaced. No ventricular heave. Irregularly irregular with normal rate. Normal S1-S2. No murmurs, rubs, or gallops. Pulmonary: Decreased breath sounds bilaterally but otherwise clear to auscultation bilaterally without wheezes, rales, or rhonchi. Abdomen: Soft, nontender, nondistended, with normoactive bowel sounds. No bruits noted. Extremities: 2+ right radial pulse. Left upper extremity surgical scar noted with 1+ left radial pulse. 2+ posterior tibialis pulses bilaterally. 3+ bilateral lower extremity edema, L > R. No cyanosis. Psychiatric: Affect appears appropriate. Results & Data ([facility]) Vital Signs (Past 12 Hours) Vital Signs Temp Pulse Resp BP Pulse Ox 05/05/21 07:58 36.9 C 84 18 107/72 95 02/11/22 04:00 36.4 C L 96 H 18 126/76 98 Intake & Output 05/03/21 05/04/21 05/05/21 05/06/21 06:59 06:59 06:59 06:59 Intake Total 150 / 150 660 / 660 Output Total 350 / 350 Balance -200 / -200 660 / 660 Weight 172 lb 2.896 oz Laboratory Results Laboratory Results - last 24 hr 05/04/21 05/04/21 05/04/21 17:45 17:45 17:45 WBC 8.95 RBC 4.86 Hgb 13.6 Hct 44.7 MCV 92.0 MCH 28.0 MCHC 30.4 L RDW Std Deviation 60.7 H RDW Coeff of Agusto 18.1 H Plt Count 293 MPV 10.5 H Immature Gran % (Auto) 0.1 Neut % (Auto) 67.7 Lymph % (Auto) 22.2 Sutton % (Auto) 8.9 Eos % (Auto) 0.9 Baso % (Auto) 0.2 Neut # (Auto) 6.05 Lymph # (Auto) 1.99 Sutton # (Auto) 0.80 H Eos # (Auto) 0.08 Baso # (Auto) 0.02 Immature Gran # (Auto) 0.01 Absolute Nucleated RBC 0.16 H Nucleated RBC % (auto) 1.7 PT 13.6 H INR 1.4 H APTT 27.4 PTT Ratio 1.0 Sodium 139 Potassium 4.9 Chloride 107 Carbon Dioxide 21 Anion Gap 11 BUN 44 H Creatinine 2.02 H Est Cr Clr Drug Dosing Not Reportable Est GFR ( Amer) 27.9 Est GFR (Non-Af Amer) 24.0 BUN/Creatinine Ratio 21.8 H Glucose 118 H Calcium 9.4 Phosphorus Magnesium Total Bilirubin 0.8 Direct Bilirubin AST 30 ALT 58 H Alkaline Phosphatase 115 H Troponin I 0.07 H* B-Natriuretic Peptide Total Protein 6.4 Albumin 3.6 Globulin 2.8 Albumin/Globulin Ratio 1.3 SARS-CoV-2, RNA, NAAT 05/04/21 05/04/21 05/04/21 17:45 21:54 22:22 WBC RBC Hgb Hct MCV MCH MCHC RDW Std Deviation RDW Coeff of Agusto Plt Count MPV Immature Gran % (Auto) Neut % (Auto) Lymph % (Auto) Sutton % (Auto) Eos % (Auto) Baso % (Auto) Neut # (Auto) Lymph # (Auto) Sutton # (Auto) Eos # (Auto) Baso # (Auto) Immature Gran # (Auto) Absolute Nucleated RBC Nucleated RBC % (auto) PT INR APTT PTT Ratio Sodium Potassium Chloride Carbon Dioxide Anion Gap BUN Creatinine Est Cr Clr Drug Dosing Est GFR ( Amer) Est GFR (Non-Af Amer) BUN/Creatinine Ratio Glucose Calcium Phosphorus 4.6 Magnesium 2.3 Total Bilirubin Direct Bilirubin AST ALT Alkaline Phosphatase Troponin I B-Natriuretic Peptide 1803 H Total Protein Albumin Globulin Albumin/Globulin Ratio SARS-CoV-2, RNA, NAAT NEGATIVE 05/04/21 05/05/21 05/05/21 22:22 06:05 06:05 WBC 7.77 RBC 4.57 Hgb 12.5 Hct 41.7 MCV 91.2 MCH 27.4 MCHC 30.0 L RDW Std Deviation 59.8 H RDW Coeff of Agusto 18.1 H Plt Count 271 MPV 10.2 Immature Gran % (Auto) 0.1 Neut % (Auto) 68.2 Lymph % (Auto) 23.6 Sutton % (Auto) 7.6 Eos % (Auto) 0.4 Baso % (Auto) 0.1 Neut # (Auto) 5.30 Lymph # (Auto) 1.83 Sutton # (Auto) 0.59 Eos # (Auto) 0.03 Baso # (Auto) 0.01 Immature Gran # (Auto) 0.01 Absolute Nucleated RBC 0.15 H Nucleated RBC % (auto) 1.9 PT INR APTT PTT Ratio Sodium 139 Potassium 4.7 Chloride 107 Carbon Dioxide 24 Anion Gap 8 BUN 45 H Creatinine 1.87 H Est Cr Clr Drug Dosing Not Reportable Est GFR ( Amer) 30.6 Est GFR (Non-Af Amer) 26.4 BUN/Creatinine Ratio 24.1 H Glucose 97 Calcium 9.0 Phosphorus Magnesium Total Bilirubin 0.9 Direct Bilirubin 0.3 H AST 38 ALT 61 H Alkaline Phosphatase 104 Troponin I 0.07 H* 0.06 H* B-Natriuretic Peptide Total Protein 5.9 L Albumin 3.3 L Globulin Albumin/Globulin Ratio SARS-CoV-2, RNA, NAAT Diagnostic Findings Cardiac catheterization report and operative report reviewed as noted above in HPI. Echo report reviewed as noted in HPI. ECG personally reviewed from 05/04/2021 at 5:41 p.m.: AFib RVR 105 beats per minute. Incomplete RBBB. Inferior infarct. Anterior infarct. Chest x-ray 05/04/2021: Decreased inspiration with small left pleural effusion per Radiology. Medications Administered Current Inpatient Medications Acetaminophen (Acetaminophen 325 Mg Tab) 650 mg PO Q4H PRN PRN Reason: pain/fever Stop: 06/04/21 00:18 Apixaban (Apixaban 5 Mg Tablet) 5 mg PO BID ALAN Stop: 06/04/21 08:59 Last Admin: 05/05/21 07:52 Dose: 5 mg Documented by: Atorvastatin Calcium (Atorvastatin 40 Mg Tab) 80 mg PO HS [facility] Stop: 06/04/21 20:59 Clopidogrel Bisulfate (Clopidogrel Bisulfate 75 Mg Tab) 75 mg PO QAM [facility] Stop: 06/04/21 08:59 Last Admin: 05/05/21 07:52 Dose: 75 mg Documented by: Furosemide (Furosemide 40 Mg/4 Ml Vial) 40 mg IV BID17 [facility] Stop: 06/04/21 14:44 Metoprolol Succinate (Metoprolol Succ 50mg Ext Rel Tab) 100 mg PO DAILY ALAN Stop: 06/04/21 08:59 Last Admin: 05/05/21 07:52 Dose: 100 mg Documented by: Nitroglycerin (Nitroglycerin Sl 0.4 Mg/Tab Tab) 0.4 mg SL UD PRN PRN Reason: Chest Pain Stop: 06/04/21 00:18 Ondansetron HCl (Ondansetron Inj 2 Mg/Ml 2 Ml Vial) 4 mg IV Q6H PRN PRN Reason: Nausea Stop: 06/04/21 00:18 Senna/Docusate Sodium (Docusate Sodium/Senna 50/8.6mg Tab) 2 tab PO BID PRN PRN Reason: constipation Stop: 06/04/21 00:18 PG Care Time/CCT Total # of Minutes Spent Total Time Spent with Patient: Total time spent is greater than 50% in coordination of care (as documented) at patient's floor/unit and/or counseling patient: Coding Level of Care Code 73326 Initial Inpt Care Lvl 3 Diagnoses Acute HFrEF (heart failure with reduced ejection fraction) I50.21 Cardiomyopathy I42.9 CAD (coronary artery disease) I25.10 Acute kidney injury N17.9 Thrombus of left atrial appendage I51.3 Atrial fibrillation I48.91 Hypertension I10 Hypertension type: primary hypertension (1) Hypertension Hypertension type: primary hypertension Qualified Code(s): I10 - Essential (primary) hypertension
[2021-05-05] MEDS: FUROSEMIDE 40 MG/4 ML VIAL IV SCH (16:49)
[2021-05-05] MEDS: ATORVASTATIN 40 MG TAB PO SCH (20:03)
--- NOTE | 2021-05-05 20:33 | Hospitalist Progress Note ---
Date of Service May 05, 2021 Assessment & Plan (1) Dyspnea: Plan: 70yo female with multiple medical comorbidities, CAD with recent anterior wall STEMI secondary to LAD thrombus presenting with 2 days of progressive COY as well as substernal chest heaviness. Patient also with worsening bilateral LE edema and weeping for her legs. Labs are significant for elevation of troponin of 0.07 --> 0.07 as well as elevated BNP of 1803. CXR with effusions present. Ddx to include acute exacerbation of CHF with volume overload, must also consider ACS given recent history. Presently CP free -Admit to medical with telemetry -Repeat troponin with AM labs -EKG as needed for chest pain -Nitro as needed for chest pain -Check 2D echo -Lasix 40mg IV - monitor I/Os, daily weights, chemistry and renal function On 05/05 Appreciate input from Cardiology. Will continue to diurese. Echocardiogram: showed an EF of 15% will switch lisinopril to entresto and may add spirinolactone, once creatinine improves (2) Acute HFrEF (heart failure with reduced ejection fraction): Plan: Acute on chronic systolic CHF [place] [facility] [place] with normal LV size with moderate to severely reduced systolic function. EF 25-30%. LAD and RCA territory infarct. No concentric LVH. No LV apical thrombus. Severe LA dilation. Multilobed MASON with large mobile thrombus (2cm) seated deep inside a trabeculation attached to the posterior wall of the MASON near the entry site. -Lasix 40mg IV given - monitor UOP, BUN/Cr/Electrolytes -Continue Metoprolol -Continue Apixaban - patient with large mobile thrombus in the left atrial appendage (3) CAD (coronary artery disease): Plan: Patient with CAD s/p anterior wall STEMI secondary to large LAD thrombus s/p successful thrombectomy performed at [facility] [place]. No occlusive lesion noted in LAD - no stent placed. Chest heaviness and COY as described above - most likely secondary to volume overload, acute exacerbation of CHF. Possibly secondary to angina. EKG changes noted are similar to prior study from [facility]. Troponin is flat x 2 reads at 0.07 -Continue Plavix, Atorvastatin, Metoprolol -Consider Cardiology consultation (4) CHF (congestive heart failure): (5) Acute kidney injury: Plan: Elevation of BUN and Cr to 44 and 2.02, respectively. Possibly secondary to poor perfusion in setting of acutely decompensated CHF -Lasix administered -Monitor UOP, electrolytes and renal function in response to diuresis. If tolerated would repeat dosing of Lasix in AM -Avoid nephrotoxic agents -Renal dosing where needed -Hold Lisinopril for now (6) Hypertension: Plan: Blood pressure stable at present -Continue metoprolol -Hold Lisinopril for now -Monitor (7) Atrial fibrillation: Plan: Patient with atrial fibrillation - most likely has had three cardioembolic event - acute CVA, LUE arterial thrombus and LAD thrombus. Presently in atrial fibrillation with HR of 103. Anticoagulated on Eliquis -Continue Eliquis. Have ordered evening dose -Continue Metoprolol -Goal HR <110 while inpatient (8) Chronic kidney disease, stage 2 (mild): Plan: Review of historical GFR reveals a range of 69-82 monitor BMP's, treat comorbid conditions Risk Factor(s): age, HTN, [place], CVA, A fib, CAD Plan: F/E/N - Diuresis with Lasix, monitor electrolytes, AHA diet as tolerated Ppx - On Eliquis anticoagulation Code - Full per discussion with patient Dispo - Admit to medical with telemetry Admission and Anticipated Discharge Date Admission Date: May 04, 2021 Subjective Patient reports mild improvement from yesterday Review of Systems Review of Systems: All systems reviewed & are unremarkable except as noted in HPI & below Physical Exam Physical Exam: General: patient resting comfortably, NAD, non-toxic in appearance, AA&O x 4 Skin: warm, dry, intact, no rashes or lesions, surgical site on LUE well healing, no bleeding/drainage or dehiscence HEENT: NC/AT, PERRL, EOMI, anicteric sclera, conjunctiva without injection, external ear normal to inspection and nontender, nares patent, moist mucus me mbranes, dentition intact, no oropharyngeal lesions, neck supple, trachea midline, no LAD, no thyromegaly, no JVD Heart: +S1/S2, irregularly irregular, no m/r/g Lungs: equal air entry bilaterally, no rales/rhonchi/wheezes Abd: +BS, soft, NT/ND, no masses/organomegaly/ascites Ext: warm, 2+ pulses in UE/LE bilaterally, no clubbing/cyanosis, 3+ pitting edema of bilateral LE, sacral edema Neuro: nonfocal, patient AA&O x 4, speech intact, no facial droop, moving all extremities on command with equal strength 5/5 Results & Data Results & Data ([facility]) Vital Signs (Past 12 Hours) Vital Signs Temp Pulse Resp BP Pulse Ox 05/05/21 19:06 36.5 C 99 H 18 110/71 94 05/05/21 15:57 36.5 C 98 H 18 114/69 95 PG Care Time/CCT Total # of Minutes Spent Total Time Spent with Patient: Total time spent is greater than 50% in coordination of care (as documented) at patient's floor/unit and/or counseling patient: Coding Level of Care Code 62781 Subseq Hosp Care Lvl 2 Diagnoses Dyspnea R06.00 CAD (coronary artery disease) I25.10 CHF (congestive heart failure) I50.9 Acute kidney injury N17.9 Hypertension I10 Hypertension type: primary hypertension Atrial fibrillation I48.91 Acute HFrEF (heart failure with reduced ejection fraction) I50.21 Chronic kidney disease, stage 2 (mild) N18.2 (1) Hypertension Hypertension type: primary hypertension Qualified Code(s): I10 - Essential (primary) hypertension
[2021-05-05] MEDS: ONDANSETRON INJ 2 MG/ML 2 ML VIAL IV PRN (23:22)
--- NOTE | 2021-05-06 06:26 | Electrocardiogram Report ---
Test Reason : Blood Pressure : / mmHG Vent. Rate : 105 BPM Atrial Rate : 127 BPM P-R Int : 000 ms QRS Dur : 106 ms QT Int : 322 ms P-R-T Axes : 000 020 170 degrees QTc Int : 425 ms Atrial fibrillation with rapid ventricular response Incomplete right bundle branch block Inferior infarct (cited on or before 19-MAR-2021) Anterior infarct , age undetermined T wave abnormality, consider lateral ischemia Abnormal ECG When compared with ECG of 19-MAR-2021 03:54, Incomplete right bundle branch block is now Present Anterior infarct is now Present T wave inversion now evident in Lateral leads Confirmed by Freddy Lopez ([id number]) on 05/06/2021 6:26:20 AM Referred By: REFERRED SELF Confirmed By:Freddy Lopez
[2021-05-06 07:03] LABS: BUN Creatinine Ratio 23.9 (10-20); Calcium 8.6 mg/dl (8.5-10.1); Est GFR (Non-African American) 24.2 ml/min
[2021-05-06] MEDS: APIXABAN 5 MG TABLET PO SCH ×2 (08:35→20:28)
[2021-05-06] MEDS: CLOPIDOGREL BISULFATE 75 MG TAB PO SCH (08:35)
[2021-05-06] MEDS: ONDANSETRON INJ 2 MG/ML 2 ML VIAL IV PRN (08:35)
[2021-05-06] MEDS: METOPROLOL SUCC 50MG EXT REL TAB PO SCH (08:36)
[2021-05-06] MEDS: FUROSEMIDE 40 MG/4 ML VIAL IV SCH ×2 (08:36→17:58)
--- NOTE | 2021-05-06 08:36 | Cardiology Progress Note ---
Date of Service May 06, 2021 Assessment & Plan (1) Acute HFrEF (heart failure with reduced ejection fraction): (2) Cardiomyopathy: (3) CAD (coronary artery disease): (4) Atrial fibrillation: (5) Hypertension: (6) Thrombus of left atrial appendage: (7) Acute kidney injury: Plan: ASSESSMENT/PLAN: 1. Acute heart failure with reduced EF: She remains fluid overloaded although it appears markedly improved both based on her symptoms and her weight. I would continue the current diuresis regimen, she still has significant fluid remaining. 2. Cardiomyopathy: Presumably ischemic in etiology although we cannot exclude a component of atrial fibrillation with rapid heart rate. I would recommend better rate control and agree with Dr. Lopez's recommendations yesterday as far as medical therapy. Her blood pressure is not low and I think we should go up on her beta-nicol, I will increase her metoprolol succinate to 150 mg daily to help control the heart rate and help with her cardiomyopathy. I agree we should consider ICD implantation for primary prevention of sudden cardiac . 3. CAD s/p LAD STEMI and thrombectomy: No angina. Continue anti-platelet therapy. Presumed embolic event in the setting of left atrial appendage thrombus. Chronically occluded RCA. Continue beta-nicol and high-intensity statin therapy. 4. Atrial fibrillation: Her atrial fibrillation is felt to be permanent, she needs ongoing anticoagulation especially with her history of an embolic event. I would like to control her heart rate a little more in view of her cardiomyopathy and will increase her beta-blockade. 5. Hypertension: Blood pressure well controlled. We will need to watch on increase beta-blockade. 6. Left atrial appendage thrombus: On anticoagulation therapy. 7. Acute kidney injury: Her creatinine is relatively stable, it is fluctuating somewhat with no clear trend. I would continue diuresis. Admission and Anticipated Discharge Date Admission Date: May 04, 2021 Subjective Chart reviewed. Severe coronary artery disease, probable ischemic cardiomyopathy and presentation with acute congestive heart failure. Echocardiography May 05, 2021 shows severe left ventricular dysfunction with ejection fraction 15 to 20%. Permanent atrial fibrillation. She was admitted and diuresed. Today she feels quite well. She is still little short of breath at times, but markedly improved. She feels that her leg edema has also significantly improved. Physical Exam Physical Exam: Constitutional: Alert, cooperative and in no distress. HEENT: Unremarkable Neck: No jugular venous distention, carotid pulses are normal and equal bilaterally without bruits. Pulmonary: Slight bilateral rales on auscultation bilaterally. Cardiac: Irregular somewhat rapid rhythm with no murmur, gallop or rub. Abdomen: Soft, nontender with normal bowel sounds. Extremities: +3 bilateral pretibial pitting edema. Distal pulses intact. Neurologic: No focal findings. Gait was not tested. Skin: No rash, ecchymoses or petechiae. Results & Data ([facility]) Vital Signs (Past 12 Hours) Vital Signs Temp Pulse Pulse Resp BP Pulse Ox 05/06/21 08:00 36.4 C L 111 H 18 123/79 94 05/06/21 03:25 36.8 C 102 H 18 100/70 93 05/05/21 22:50 36.3 C L 106 H 18 114/62 95 05/05/21 22:43 93 H Laboratory Results Cardiac Enzymes 05/04/21 Range/Units 17:45 Troponin I 0.07 H* (0-0.04) ng/ml Comprehensive Metabolic Panel 05/06/21 05/06/21 Range/Units 06:06 07:13 Sodium 138 (136-145) mmol/L Potassium 4.6 (3.5-5.1) mmol/L Chloride 104 (98-107) mmol/L Carbon Dioxide 25 (21-32) mmol/L BUN 48 H (6-23) mg/dl Creatinine 2.01 H (0.6-1.2) mg/dl Glucose 102 H (70-99(Fasting)) mg/dl Calcium 8.6 (8.5-10.1) mg/dl Intake and Output 05/05/21 05/06/21 05/06/21 22:59 06:59 14:59 Intake Total 275 / 1055 120 / 1055 Balance 275 / 1055 120 / 1055 Intake: Oral 275 / 1055 120 / 1055 Other: # Unmeasured Voids 2 Weight 78.1 kg 75.2 kg Weight Measurement Method Built in Bedscale Standing Scale Diagnostic Findings Telemetry: Atrial fibrillation, heart rate averaging around 100 the last several days. PG Care Time/CCT Total # of Minutes Spent Total Time Spent with Patient: Total time spent is greater than 50% in coordination of care (as documented) at patient's floor/unit and/or counseling patient: Coding Level of Care Code 80726 Subseq Hosp Care Lvl 3 Diagnoses Acute HFrEF (heart failure with reduced ejection fraction) I50.21 Cardiomyopathy I25.5 Cardiomyopathy type: ischemic CAD (coronary artery disease) I25.10 Coronary Disease-Associated Artery/Lesion type: [place] artery [place] vs. transplanted heart: [place] heart Associated angina: without angina Acute kidney injury N17.9 Thrombus of left atrial appendage I51.3 Atrial fibrillation I48.21 Atrial fibrillation type: permanent Hypertension I10 Hypertension type: primary hypertension (1) CAD (coronary artery disease) Coronary Disease-Associated Artery/Lesion type: [place] artery [place] vs. transplanted heart: [place] heart Associated angina: without angina Qualified Code(s): I25.10 - Atherosclerotic heart disease of [place] coronary artery without angina pectoris (2) Atrial fibrillation Atrial fibrillation type: permanent Qualified Code(s): I48.21 - Permanent atrial fibrillation (3) Hypertension Hypertension type: primary hypertension Qualified Code(s): I10 - Essential (primary) hypertension (4) Cardiomyopathy Cardiomyopathy type: ischemic Qualified Code(s): I25.5 - Ischemic cardiomyopathy
[2021-05-06] MEDS ORDERED: METOPROLOL SUCC 50MG EXT REL TAB PO STA (11:17)
--- NOTE | 2021-05-06 19:01 | Hospitalist Progress Note ---
Date of Service May 06, 2021 Assessment & Plan (1) Acute HFrEF (heart failure with reduced ejection fraction): Plan: Acute on chronic systolic CHF. Echo performed at [facility] [place] on 03/24/21 with normal LV size with moderate to severely reduced systolic function. EF 25-30%. LAD and RCA territory infarct. No concentric LVH. No LV apical thrombus. Severe LA dilation. Multi-lobed MASON with large mobile thrombus (2cm) seated deep inside a trabeculation attached to the posterior wall of the MASON near the entry site. Now echo with EF of 15-20%. - Continue Lasix 40 mg IV BID - Continue Plavix, atorvastatin, metoprolol XL 150 mg PO daily - Continue apixaban - Plan to start Entresto and spironolactone as BP tolerates. (2) CAD (coronary artery disease): Plan: Patient with CAD s/p anterior wall STEMI secondary to large LAD thrombus s/p successful thrombectomy performed at [facility] on 03/19/21. No occlusive lesion noted in LAD - no stent placed. - Plan as above (3) Acute kidney injury: Plan: Elevation of BUN and Cr to 44 and 2.02, respectively. Possibly secondary to poor perfusion in setting of acutely decompensated CHF. - Cr stable today at 2.0. Will continue to diurese unless Cr goes up as she remains hypervolemic. (4) Atrial fibrillation: Plan: Patient with atrial fibrillation - most likely has had three cardioembolic event - acute CVA, LUE arterial thrombus, and LAD thrombus. Presently in atrial fibrillation. Anticoagulated on Eliquis. - Continue Eliquis. - Continue Metoprolol - Goal HR <110 while inpatient (5) Hypertension: Plan: Blood pressure stable at present at 110/70. - Continue metoprolol - Hold lisinopril - Plan for Entresto & spironolactone as above - Monitor (6) Chronic kidney disease, stage 2 (mild): Plan: Review of historical GFR reveals a range of 69-82. - As above Admission and Anticipated Discharge Date Admission Date: May 04, 2021 Subjective Feels there is still some swelling in the legs. But breathing is better. Reports no fevers/chills, chest pain, shortness of breath, abdominal pain, nausea, or vomiting. Physical Exam Constitutional: WD/WN, vitals as above Eyes: EOM intact bilaterally; no conjunctival abnormality ENMT: external ear and nose normal, oropharynx normal Neck: trachea midline, no thyromegaly normal visual inspection Respiratory: normal respiratory effort, lungs clear to auscultation no respiratory distress Cardiovascular: Rate/Rhythm: regular rate and regular rhythm Extremities: + edema Gastrointestinal (Abdomen): Inspection/Auscultation: abdomen normal to inspection; abdomen not distended Musculoskeletal: no cyanosis or clubbing, extremities motor strength 5/5 Skin: no rashes, warm and dry Neurologic: moves all extremities and awake Psychiatric: Orientation: alert, oriented to person and cooperative Results & Data Results & Data ([facility]) Vital Signs (Past 12 Hours) Vital Signs Temp Pulse Resp BP Pulse Ox 05/06/21 15:15 36.6 C 96 H 18 107/70 92 05/06/21 12:00 36.3 C L 94 H 18 113/75 97 05/06/21 08:00 36.4 C L 111 H 18 123/79 94 PG Care Time/CCT Total # of Minutes Spent Total Time Spent with Patient: Total time spent is greater than 50% in coordination of care (as documented) at patient's floor/unit and/or counseling patient: Coding Level of Care Code 81321 Subseq Hosp Care Lvl 3 Diagnoses Acute HFrEF (heart failure with reduced ejection fraction) I50.21 CAD (coronary artery disease) I25.10 Coronary Disease-Associated Artery/Lesion type: [place] artery [place] vs. transplanted heart: [place] heart Associated angina: without angina Acute kidney injury N17.9 Hypertension I10 Hypertension type: primary hypertension Atrial fibrillation I48.21 Atrial fibrillation type: permanent Chronic kidney disease, stage 2 (mild) N18.2 (1) CAD (coronary artery disease) Coronary Disease-Associated Artery/Lesion type: [place] artery [place] vs. transplanted heart: [place] heart Associated angina: without angina Qualified Code(s): I25.10 - Atherosclerotic heart disease of [place] coronary artery without angina pectoris (2) Hypertension Hypertension type: primary hypertension Qualified Code(s): I10 - Essential (primary) hypertension (3) Atrial fibrillation Atrial fibrillation type: permanent Qualified Code(s): I48.21 - Permanent atrial fibrillation
[2021-05-06] MEDS: ATORVASTATIN 40 MG TAB PO SCH (20:29)
[2021-05-07 06:03] LABS: Hematocrit (blood only) 39.4 % (37-47); Mean Corpuscular Hemoglobin 27.3 pg (25-34); Mean Corpuscular Hgb Conc 30.5 g/dL (32-36); Mean Corpuscular Volume 89.5 fL (80-100); Mean Platelet Volume 9.9 fL (7.4-10.4); Nucleated RBC % (auto) 1.3 %; Platelet Count 235 K/uL (130-400); RDW Coefficient of Variation 17.9 % (11.5-14.5); RDW Standard Deviation 58.3 fL (36.4-46.3); White Blood Count 7.83 K/uL (4.8-10.8)
[2021-05-07 06:27] LABS: BUN Creatinine Ratio 24.5 (10-20); Calcium 8.7 mg/dl (8.5-10.1); Creatinine Clr Calc Pharmacy 22.5 ml/min; Est GFR (African American) 26.3 ml/min; Est GFR (Non-African American) 22.7 ml/min; Magnesium 1.8 mg/dl (1.7-2.4); Potassium 3.7 mmol/L (3.5-5.1)
--- NOTE | 2021-05-07 07:13 | Cardiology Progress Note ---
Date of Service May 07, 2021 Assessment & Plan (1) Acute HFrEF (heart failure with reduced ejection fraction): (2) Cardiomyopathy: (3) CAD (coronary artery disease): (4) Atrial fibrillation: (5) Anticoagulant long-term use: (6) Hypertension: (7) Thrombus of left atrial appendage: (8) Acute kidney injury: Plan: ASSESSMENT/PLAN: 1. Acute heart failure with reduced EF: She remains fluid overloaded although it appears markedly improved both based on her symptoms and her weight. Although her creatinine is up somewhat today I would continue the current diuresis regimen, she still has significant fluid remaining. We may be limited by kidney function. 2. Cardiomyopathy: Presumably ischemic in etiology although we cannot exclude a component of atrial fibrillation with rapid heart rate. I would recommend better rate control and agree with Dr. Lopez's recommendations as far as medical therapy. Her blood pressure is not generally low and I did go up on her beta-nicol yesterday, I am reluctant to go up further in the setting of acute CHF although in the long run we should if possible. I agree we should consider ICD implantation for primary prevention of sudden cardiac . 3. CAD s/p LAD STEMI and thrombectomy: No angina. Continue anti-platelet therapy. Presumed embolic event in the setting of left atrial appendage thrombus. Chronically occluded RCA. Continue beta-nicol and high-intensity statin therapy. 4. Atrial fibrillation: Her atrial fibrillation is felt to be permanent, she needs ongoing anticoagulation especially with her history of an embolic event. Her heart rate remains somewhat elevated and I would like to control her heart rate a little more in view of her cardiomyopathy but am reluctant to increase her beta-blockade. I will add low dose digoxin with a load today, and a daily dose and check a level tomorrow. 5. Anticoagulation: She is on Eliquis 5 mg BID, this is appropriate for her age and weight. I would not reduce it due to her kidney function. 6. Hypertension: Blood pressure well controlled on the low side. This is acceptable although may make GABBY/ARB use difficult. 7. Left atrial appendage thrombus: On anticoagulation therapy. 8. Acute kidney injury: Her creatinine had been relatively stable, it is up slightly today. I would continue diuresis however, hopefully she can tolerate it. Admission and Anticipated Discharge Date Admission Date: May 04, 2021 Subjective She is gradually feeling better but still notes edema and has not tried to be active. No other cardiovascular symptoms. Physical Exam Physical Exam: Constitutional: Alert, cooperative and in no distress. HEENT: Unremarkable Neck: No jugular venous distention, carotid pulses are normal and equal bilaterally without bruits. Pulmonary: Slight bilateral rales on auscultation bilaterally. Cardiac: Irregular somewhat rapid rhythm with no murmur, gallop or rub. Abdomen: Soft, nontender with normal bowel sounds. Extremities: +3 bilateral pretibial pitting edema. Distal pulses intact. Neurologic: No focal findings. Gait was not tested. Skin: No rash, ecchymoses or petechiae. Results & Data ([facility]) Vital Signs (Past 12 Hours) Vital Signs Temp Pulse Pulse Resp BP Pulse Ox 05/07/21 03:23 36.7 C 106 H 18 109/72 94 05/06/21 23:03 36.8 C 88 18 114/76 95 05/06/21 22:20 103 H 05/06/21 19:20 36.4 C L 92 H 18 112/76 93 Laboratory Results CBC 05/07/21 Range/Units 05:32 WBC 7.83 (4.8-10.8) K/uL RBC 4.40 (4.2-5.4) M/uL Hgb 12.0 (12.0-16.0) g/dL Hct 39.4 (37-47) % Plt Count 235 (130-400) K/uL Comprehensive Metabolic Panel 05/06/21 05/07/21 Range/Units 07:13 05:32 Sodium 138 (136-145) mmol/L Potassium 4.6 3.7 (3.5-5.1) mmol/L Chloride 102 (98-107) mmol/L Carbon Dioxide 28 (21-32) mmol/L BUN 52 H (6-23) mg/dl Creatinine 2.12 H (0.6-1.2) mg/dl Glucose 120 H (70-99(Fasting)) mg/dl Calcium 8.7 (8.5-10.1) mg/dl Intake and Output 05/06/21 05/07/21 05/07/21 22:59 06:59 14:59 Intake Total 240 / 540 100 / 540 Output Total 250 / 1025 775 / 1025 Balance -10 / -485 -675 / -485 Intake: Oral 240 / 540 100 / 540 Output: Urine 250 / 1025 775 / 1025 Other: Weight 73.6 kg Weight Measurement Method Standing Scale Diagnostic Findings Telemetry: Atrial fibrillation, heart rate is still a little bit high, averaging around 100 or close to it. PG Care Time/CCT Total # of Minutes Spent Total Time Spent with Patient: Total time spent is greater than 50% in coordination of care (as documented) at patient's floor/unit and/or counseling patient: Coding Level of Care Code 74539 Subseq Hosp Care Lvl 2 Diagnoses Acute HFrEF (heart failure with reduced ejection fraction) I50.21 Cardiomyopathy I25.5 Cardiomyopathy type: ischemic CAD (coronary artery disease) I25.10 Associated angina: without angina Coronary Disease-Associated Artery/Lesion type: [place] artery [place] vs. transplanted heart: [place] heart Atrial fibrillation I48.21 Atrial fibrillation type: permanent Hypertension I10 Hypertension type: primary hypertension Thrombus of left atrial appendage I51.3 Acute kidney injury N17.9 Anticoagulant long-term use Z79.01 (1) CAD (coronary artery disease) Associated angina: without angina Coronary Disease-Associated Artery/Lesion type: [place] artery [place] vs. transplanted heart: [place] heart Qualified Code(s): I25.10 - Atherosclerotic heart disease of [place] coronary artery without angina pectoris (2) Atrial fibrillation Atrial fibrillation type: permanent Qualified Code(s): I48.21 - Permanent atrial fibrillation (3) Hypertension Hypertension type: primary hypertension Qualified Code(s): I10 - Essential (primary) hypertension (4) Cardiomyopathy Cardiomyopathy type: ischemic Qualified Code(s): I25.5 - Ischemic cardiomyopathy
[2021-05-07] MEDS ORDERED: DIGOXIN 0.25 MG TAB PO ONE (07:22)
[2021-05-07] MEDS: METOPROLOL SUCC 50MG EXT REL TAB PO SCH (08:33)
[2021-05-07] MEDS: APIXABAN 5 MG TABLET PO SCH ×2 (08:34→21:41)
[2021-05-07] MEDS: CLOPIDOGREL BISULFATE 75 MG TAB PO SCH (08:34)
[2021-05-07] MEDS ORDERED: FUROSEMIDE 40 MG/4 ML VIAL IV ONE (08:47)
[2021-05-07] MEDS ORDERED: DIGOXIN 0.125 MG TAB PO SCH ×2 (09:00→16:00)
--- NOTE | 2021-05-07 11:59 | Hospitalist Progress Note ---
Date of Service May 07, 2021 Assessment & Plan (1) Acute HFrEF (heart failure with reduced ejection fraction): Plan: Acute on chronic systolic CHF. [place] [facility] with normal LV size with moderate to severely reduced systolic function. EF 25-30%. LAD and RCA territory infarct. No concentric LVH. No LV apical thrombus. Severe LA dilation. Multi-lobed MASON with large mobile thrombus (2cm) seated deep inside a trabeculation attached to the posterior wall of the MASON near the entry site. Now echo with EF of 15-20%. - Continue Lasix 40 mg IV -> Dose given on 05/07 AM; had slowed slightly due to slightly elevated Cr. - Continue Plavix, atorvastatin, metoprolol XL 150 mg PO daily - Continue apixaban - Plan to start Entresto and spironolactone as BP tolerates. ==> Weight down to near priors. Slight rise in Cr. Good diuresis with single dose. Will defer second Lasix dose today. (2) CAD (coronary artery disease): Plan: Patient with CAD s/p anterior wall STEMI secondary to large LAD thrombus s/p successful thrombectomy [place] [facility]. No occlusive lesion noted in LAD - no stent placed. - Plan as above (3) Acute kidney injury: Plan: Elevation of BUN and Cr to 44 and 2.02, respectively. Possibly secondary to poor perfusion in setting of acutely decompensated CHF. - Cr stable today at 2.1. Will continue diurese as above. (4) Atrial fibrillation: Plan: Patient with atrial fibrillation - most likely has had three cardioembolic event - acute CVA, LUE arterial thrombus, and LAD thrombus. Presently in atrial fibrillation. Anticoagulated on Eliquis. - Continue Eliquis. - Continue metoprolol XL 150 mg PO daily - Cardiology added digoxin on 05/07 - Goal HR <110 while inpatient (5) Hypertension: Plan: Blood pressure stable at present at 115/70. - Continue metoprolol - Hold lisinopril - Plan for Entresto & spironolactone as above - Monitor (6) Chronic kidney disease, stage 2 (mild): Plan: Review of historical GFR reveals a range of 69-82. - As above Admission and Anticipated Discharge Date Admission Date: May 04, 2021 Subjective Feels there is still some swelling in the legs. But breathing is better. Reports no fevers/chills, chest pain, shortness of breath, abdominal pain, nausea, or vomiting. Physical Exam Constitutional: WD/WN, vitals as above Eyes: EOM intact bilaterally; no conjunctival abnormality ENMT: external ear and nose normal, oropharynx normal Neck: trachea midline, no thyromegaly normal visual inspection Respiratory: normal respiratory effort, lungs clear to auscultation no respiratory distress Cardiovascular: Rate/Rhythm: regular rate and regular rhythm Extremities: + edema Gastrointestinal (Abdomen): Inspection/Auscultation: abdomen normal to inspection; abdomen not distended Musculoskeletal: no cyanosis or clubbing, extremities motor strength 5/5 Skin: no rashes, warm and dry Neurologic: moves all extremities and awake Psychiatric: Orientation: alert, oriented to person and cooperative Results & Data Results & Data ([facility]) Vital Signs (Past 12 Hours) Vital Signs Temp Pulse Pulse Resp BP Pulse Ox 05/07/21 11:11 36.4 C L 91 H 18 114/77 96 05/07/21 08:32 107 H 05/07/21 08:31 107 H 05/07/21 08:00 36.7 C 104 H 18 119/69 95 05/07/21 03:23 36.7 C 106 H 18 109/72 94 PG Care Time/CCT Total # of Minutes Spent Total Time Spent with Patient: Total time spent is greater than 50% in coordination of care (as documented) at patient's floor/unit and/or counseling patient: Coding Level of Care Code 67418 Subseq Hosp Care Lvl 2 Diagnoses Acute HFrEF (heart failure with reduced ejection fraction) I50.21 CAD (coronary artery disease) I25.10 Coronary Disease-Associated Artery/Lesion type: [place] artery [place] vs. transplanted heart: [place] heart Associated angina: without angina Acute kidney injury N17.9 Atrial fibrillation I48.21 Atrial fibrillation type: permanent Hypertension I10 Hypertension type: primary hypertension Chronic kidney disease, stage 2 (mild) N18.2 (1) CAD (coronary artery disease) Coronary Disease-Associated Artery/Lesion type: [place] artery [place] vs. transplanted heart: [place] heart Associated angina: without angina Qualified Code(s): I25.10 - Atherosclerotic heart disease of [place] coronary artery without angina pectoris (2) Atrial fibrillation Atrial fibrillation type: permanent Qualified Code(s): I48.21 - Permanent atrial fibrillation (3) Hypertension Hypertension type: primary hypertension Qualified Code(s): I10 - Essential (primary) hypertension
[2021-05-07] MEDS: ATORVASTATIN 40 MG TAB PO SCH (21:41)
[2021-05-08 07:17] LABS: Hematocrit (blood only) 40.3 % (37-47); Hemoglobin 12.4 g/dL (12.0-16.0); Mean Corpuscular Hemoglobin 27.9 pg (25-34); Mean Corpuscular Hgb Conc 30.8 g/dL (32-36); Mean Corpuscular Volume 90.8 fL (80-100); Mean Platelet Volume 10.1 fL (7.4-10.4); Nucleated RBC # (auto) 0.03 K/uL (0-0); Nucleated RBC % (auto) 0.4 %; Platelet Count 240 K/uL (130-400); RDW Standard Deviation 59.5 fL (36.4-46.3); Red Blood Count 4.44 M/uL (4.2-5.4); White Blood Count 7.94 K/uL (4.8-10.8)
[2021-05-08 07:39] LABS: BUN Creatinine Ratio 23.3 (10-20); Calcium 8.6 mg/dl (8.5-10.1); Creatinine Clr Calc Pharmacy 23.1 ml/min; Est GFR (African American) 27.2 ml/min; Est GFR (Non-African American) 23.5 ml/min; Magnesium 1.8 mg/dl (1.7-2.4); Potassium 3.6 mmol/L (3.5-5.1)
[2021-05-08] MEDS: METOPROLOL SUCC 50MG EXT REL TAB PO SCH (08:25)
[2021-05-08] MEDS: APIXABAN 5 MG TABLET PO SCH ×2 (08:25→21:20)
[2021-05-08] MEDS: CLOPIDOGREL BISULFATE 75 MG TAB PO SCH (08:26)
--- NOTE | 2021-05-08 11:09 | Hospitalist Progress Note ---
Date of Service May 08, 2021 Assessment & Plan (1) Acute HFrEF (heart failure with reduced ejection fraction): Plan: Acute on chronic systolic CHF. Echo performed at [facility] on 03/24/21 with normal LV size with moderate to severely reduced systolic function. EF 25-30%. LAD and RCA territory infarct. No concentric LVH. No LV apical thrombus. Severe LA dilation. Multi-lobed MASON with large mobile thrombus (2cm) seated deep inside a trabeculation attached to the posterior wall of the MASON near the entry site. Now echo with EF of 15-20%. - Continue Lasix 40 mg IV BID today. - Continue Plavix, atorvastatin, metoprolol XL 150 mg PO daily - Continue apixaban - Plan to start Entresto and spironolactone as BP tolerates. ==> Weight down to near priors. Slight rise in Cr, but stable. Volume status seems near euvolemia. Reached out to [facility] cardiology as that who she plans to see long-term. (2) CAD (coronary artery disease): Plan: Patient with CAD s/p anterior wall STEMI secondary to large LAD thrombus s/p successful thrombectomy performed at [facility] on 03/19/21. No occlusive lesion noted in LAD - no stent placed. - Plan as above (3) Acute kidney injury: Plan: Elevation of BUN and Cr to 44 and 2.02, respectively. Possibly secondary to poor perfusion in setting of acutely decompensated CHF. - Cr stable today at 2.0. Will continue diurese as above. (4) Atrial fibrillation: Plan: Patient with atrial fibrillation - most likely has had three cardioembolic event - acute CVA, LUE arterial thrombus, and LAD thrombus. Presently in atrial fibrillation. Anticoagulated on Eliquis. - Continue Eliquis. - Continue metoprolol XL 150 mg PO daily - Cardiology added digoxin on 05/07 - Goal HR <110 while inpatient -> Rates generally 70-80 bpm in last 24 hours. (5) Hypertension: Plan: Blood pressure stable at present at 125/70. - Continue metoprolol - Hold lisinopril - Plan for Entresto & spironolactone as above - Monitor (6) Chronic kidney disease, stage 2 (mild): Plan: Review of historical GFR reveals a range of 69-82. - As above Admission and Anticipated Discharge Date Admission Date: May 04, 2021 Subjective Still with swelling and some mild orthopnea. Reports no fevers/chills, chest pain, shortness of breath, abdominal pain, nausea, or vomiting. Physical Exam Constitutional: WD/WN, vitals as above Eyes: EOM intact bilaterally; no conjunctival abnormality ENMT: external ear and nose normal, oropharynx normal Neck: trachea midline, no thyromegaly normal visual inspection Respiratory: normal respiratory effort, lungs clear to auscultation no res piratory distress Cardiovascular: Rate/Rhythm: regular rate and regular rhythm Vessels: no JVD Extremities: + edema Gastrointestinal (Abdomen): Inspection/Auscultation: abdomen normal to inspection; abdomen not distended Musculoskeletal: no cyanosis or clubbing, extremities motor strength 5/5 Skin: no rashes, warm and dry Neurologic: moves all extremities and awake Psychiatric: Orientation: alert, oriented to person and cooperative Results & Data Results & Data ([facility]) Vital Signs (Past 12 Hours) Vital Signs Temp Pulse Pulse Resp BP Pulse Ox 05/08/21 10:50 101 H 05/08/21 08:05 36.6 C 90 14 124/74 95 05/08/21 04:07 36.9 C 88 18 122/66 97 PG Care Time/CCT Total # of Minutes Spent Total Time Spent with Patient: Total time spent is greater than 50% in coordination of care (as documented) at patient's floor/unit and/or counseling patient: Coding Level of Care Code 43669 Subseq Hosp Care Lvl 2 Diagnoses Acute HFrEF (heart failure with reduced ejection fraction) I50.21 CAD (coronary artery disease) I25.10 Coronary Disease-Associated Artery/Lesion type: [place] artery [place] vs. transplanted heart: [place] heart Associated angina: without angina Acute kidney injury N17.9 Atrial fibrillation I48.21 Atrial fibrillation type: permanent Hypertension I10 Hypertension type: primary hypertension Chronic kidney disease, stage 2 (mild) N18.2 (1) CAD (coronary artery disease) Coronary Disease-Associated Artery/Lesion type: [place] artery [place] vs. transplanted heart: [place] heart Associated angina: without angina Qualified Code(s): I25.10 - Atherosclerotic heart disease of [place] coronary artery without angina pectoris (2) Atrial fibrillation Atrial fibrillation type: permanent Qualified Code(s): I48.21 - Permanent atr ial fibrillation (3) Hypertension Hypertension type: primary hypertension Qualified Code(s): I10 - Essential (primary) hypertension
[2021-05-08] MEDS ORDERED: POTASSIUM CHLORIDE CRTAB 20 MEQ TABCR PO STA (11:10)
[2021-05-08] MEDS ORDERED: FUROSEMIDE 40 MG/4 ML VIAL IV SCH (11:30)
--- NOTE | 2021-05-08 13:33 | Cardiology Progress Note ---
Date of Service May 08, 2021 Assessment & Plan (1) Acute HFrEF (heart failure with reduced ejection fraction): (2) Cardiomyopathy: (3) CAD (coronary artery disease): (4) Atrial fibrillation: (5) Anticoagulant long-term use: (6) Hypertension: (7) Thrombus of left atrial appendage: (8) Acute kidney injury: Plan: ASSESSMENT/PLAN: 1. Acute heart failure with reduced EF: She is still fluid overloaded although it appears markedly improved both based on her symptoms and her weight. Her creatinine is relatively stable with some fluctuation but I would continue the current diuresis regimen, she still has significant fluid remaining. We may be limited by kidney function but not yet. 2. Cardiomyopathy: Presumably ischemic in etiology although we cannot exclude a component of atrial fibrillation with rapid heart rate. Her current rate control seems adequate on metoprolol and digoxin and I agree with Dr. Lopez's recommendations as far as medical therapy. I agree we should consider ICD implantation for primary prevention of sudden cardiac . 3. CAD s/p LAD STEMI and thrombectomy: No angina. Continue anti-platelet therapy. Presumed embolic event in the setting of left atrial appendage thrombus. Chronically occluded RCA. Continue beta-nicol and high-intensity statin therapy. 4. Atrial fibrillation: Her atrial fibrillation is felt to be permanent, she needs ongoing anticoagulation especially with her history of an embolic event. Her heart rate remains somewhat elevated but I think is acceptable under the circumstances. 5. Anticoagulation: She is on Eliquis 5 mg BID, this is appropriate for her age and weight. I would not reduce it due to her kidney function. 6. Hypertension: Blood pressure well controlled on the low side. This is acceptable although may make GABBY/ARB use difficult. 7. Left atrial appendage thrombus: On anticoagulation therapy. 8. Acute kidney injury: Her creatinine has been relatively stable, it has been varying somewhat but does not show a clear trend. I would continue diuresis however, hopefully she can tolerate it. Admission and Anticipated Discharge Date Admission Date: May 04, 2021 Subjective She is feeling better today, she has not been walking much but she was able to walk to a different room and was not short of breath. She is sitting at her b edside eating and appears comfortable. She is sleeping reasonably well (not short of breath in any case). She still notes edema. Physical Exam Physical Exam: Constitutional: Alert, cooperative and in no distress. HEENT: Unremarkable Neck: No jugular venous distention, carotid pulses are normal and equal bilaterally without bruits. Pulmonary: Slight bilateral rales on auscultation bilaterally. Cardiac: Irregular somewhat rapid rhythm with no murmur, gallop or rub. Abdomen: Soft, nontender with normal bowel sounds. Extremities: +3 bilateral pretibial pitting edema. Distal pulses intact. Neurologic: No focal findings. Gait was not tested. Skin: No rash, ecchymoses or petechiae. Results & Data ([facility]) Vital Signs (Past 12 Hours) Vital Signs Temp Pulse Pulse Pulse Resp BP Pulse Ox 05/08/21 11:31 36.3 C L 78 14 120/76 96 05/08/21 10:50 101 H 05/08/21 08:05 36.6 C 90 14 124/74 95 05/08/21 04:07 36.9 C 88 18 122/66 97 Laboratory Results CBC 05/08/21 Range/Units 06:26 WBC 7.94 (4.8-10.8) K/uL RBC 4.44 (4.2-5.4) M/uL Hgb 12.4 (12.0-16.0) g/dL Hct 40.3 (37-47) % Plt Count 240 (130-400) K/uL Comprehensive Metabolic Panel 05/08/21 Range/Units 06:26 Sodium 140 (136-145) mmol/L Potassium 3.6 (3.5-5.1) mmol/L Chloride 101 (98-107) mmol/L Carbon Dioxide 31 (21-32) mmol/L BUN 48 H (6-23) mg/dl Creatinine 2.06 H (0.6-1.2) mg/dl Glucose 116 H (70-99(Fasting)) mg/dl Calcium 8.6 (8.5-10.1) mg/dl Intake and Output 05/07/21 05/08/21 05/08/21 22:59 06:59 14:59 Intake Total 540 / 740 Output Total 350 / 1750 350 / 1750 Balance 190 / -1010 -350 / -1010 Intake: Oral 540 / 740 Output: Urine 350 / 1750 350 / 1750 Other: Weight 73.3 kg Weight Measurement Method Built in [facility] Dig level 1.3 today Diagnostic Findings Telemetry: Atrial fibrillation, ventricular rate averaging around 90 bpm today down slightly from prior days. PG Care Time/CCT Total # of Minutes Spent Total Time Spent with Patient: Total time spent is greater than 50% in coordination of care (as documented) at patient's floor/unit and/or counseling patient: Coding Level of Care Code 80499 Subseq Hosp Care Lvl 2 Diagnoses Acute HFrEF (heart failure with reduced ejection fraction) I50.21 Cardiomyopathy I25.5 Cardiomyopathy type: ischemic CAD (coronary artery disease) I25.10 Associated angina: without angina Coronary Disease-Associated Artery/Lesion type: [place] artery [place] vs. transplanted heart: [place] heart Atrial fibrillation I48.21 Atrial fibrillation type: permanent Anticoagulant long-term use Z79.01 Hypertension I10 Hypertension type: primary hypertension Thrombus of left atrial appendage I51.3 Acute kidney injury N17.9 (1) CAD (coronary artery disease) Associated angina: without angina Coronary Disease-Associated Artery/Lesion type: [place] artery [place] vs. transplanted heart: [place] heart Qualified Code(s): I25.10 - Atherosclerotic heart disease of [place] coronary artery without angina pectoris (2) Atrial fibrillation Atrial fibrillation type: permanent Qualified Code(s): I48.21 - Permanent atrial fibrillation (3) Hypertension Hypertension type: primary hypertension Qualified Code(s): I10 - Essential (primary) hypertension (4) Cardiomyopathy Cardiomyopathy type: ischemic Qualified Code(s): I25.5 - Ischemic cardiomyopathy
[2021-05-08] MEDS ORDERED: DIGOXIN 0.25 MG/5 ML UDP PO SCH ×2 (16:00)
[2021-05-08] MEDS: DIGOXIN ELIXIR 0.05MG/ML PO SCH (17:13)
[2021-05-08] MEDS: ATORVASTATIN 40 MG TAB PO SCH (21:20)
[2021-05-09 06:19] LABS: Hematocrit (blood only) 42.3 % (37-47); Mean Corpuscular Hemoglobin 27.8 pg (25-34); Mean Corpuscular Hgb Conc 30.7 g/dL (32-36); Mean Corpuscular Volume 90.6 fL (80-100); Mean Platelet Volume 10.7 fL (7.4-10.4); Nucleated RBC # (auto) 0.04 K/uL (0-0); Nucleated RBC % (auto) 0.6 %; Platelet Count 243 K/uL (130-400); RDW Coefficient of Variation 17.9 % (11.5-14.5); RDW Standard Deviation 58.7 fL (36.4-46.3); Red Blood Count 4.67 M/uL (4.2-5.4); White Blood Count 7.77 K/uL (4.8-10.8)
[2021-05-09 06:43] LABS: BUN Creatinine Ratio 21.2 (10-20); Creatinine Clr Calc Pharmacy 23.9 ml/min; Est GFR (African American) 28.5 ml/min; Est GFR (Non-African American) 24.6 ml/min; Magnesium 1.9 mg/dl (1.7-2.4)
[2021-05-09] MEDS: APIXABAN 5 MG TABLET PO SCH ×2 (07:49→21:17)
[2021-05-09] MEDS: CLOPIDOGREL BISULFATE 75 MG TAB PO SCH (07:49)
[2021-05-09] MEDS: METOPROLOL SUCC 50MG EXT REL TAB PO SCH (07:49)
[2021-05-09] MEDS: DOCUSATE SODIUM/SENNA 50/8.6MG TAB PO PRN ×2 (11:20→21:16)
--- NOTE | 2021-05-09 12:56 | Cardiology Progress Note ---
Date of Service May 09, 2021 Assessment & Plan (1) Acute HFrEF (heart failure with reduced ejection fraction): Plan: -appears compensated at this time. -Lasix has been placed on hold. -tolerating metoprolol succinate. -consider starting Entresto. (2) Cardiomyopathy: Plan: -current LVEF 20% with an apical aneurysm. -likely ischemic, although rapid ventricular response to her atrial dysrhythmia may be contributing. -medical management as described above. (3) CAD (coronary artery disease): Plan: -anterior OH with an LAD thrombectomy, March 19, 2021. -55% distal LAD, 100% RCA. -medical management. (4) Atrial fibrillation: Plan: -may be permanent at this time. -may have been responsible for her CVA, January 2021. -may have been responsible for her left upper extremity thrombus, February 2021. -may have been responsible for her anterior OH, February 2021. -continue metoprolol, digoxin, and Eliquis. (5) Anticoagulant long-term use: Plan: -will be on Eliquis indefinitely. (6) Hypertension: Plan: -adequate control on current regimen. Admission and Anticipated Discharge Date Admission Date: May 04, 2021 Subjective The patient is resting comfortably at the bedside without complaints of chest pain, dyspnea, or palpitations. She was able to ambulate in the hallway today without difficulty. Physical Exam Physical Exam: In general this is a well-developed well-nourished white female in no acute distress. HEENT exam is negative. Neck is supple with full carotid upstrokes. There is a quiet carotid bruit bilaterally. No JVD. There is no thyromegaly. Cardiovascular exam reveals an irregular rhythm with distant heart sounds. No murmurs are noted. Lungs are clear without rales, rhonchi, or wheezes. Abdomen is soft and nontender without bruits. Extremities reveal intact radial artery and posterior tibial pulses bilaterally. There is trace pretibial edema. Results & Data ([facility]) Vital Signs (Past 12 Hours) Vital Signs Temp Pulse Pulse Pulse Resp BP Pulse Ox 05/09/21 11:40 36.4 C L 81 20 110/71 95 05/09/21 08:12 36.3 C L 85 20 125/80 94 05/09/21 07:29 89 05/09/21 03:19 36.3 C L 90 18 132/80 94 Diagnostic Findings ccu nurse notes atrial flutter with a controlled ventricular response of approximately 80 beats per minute. PG Care Time/CCT Total # of Minutes Spent Total Time Spent with Patient: Total time spent is greater than 50% in coordination of care (as documented) at patient's floor/unit and/or counseling patient: Coding Level of Care Code 57351 Subseq Hosp Care Lvl 3 Diagnoses Acute HFrEF (heart failure with reduced ejection fraction) I50.21 Cardiomyopathy I25.5 Cardiomyopathy type: ischemic CAD (coronary artery disease) I25.10 Associated angina: without angina Coronary Disease-Associated Artery/Lesion type: [place] artery [place] vs. transplanted heart: [place] heart Atrial fibrillation I48.21 Atrial fibrillation type: permanent Anticoagulant long-term use Z79.01 Hypertension I10 Hypertension type: primary hypertension (1) CAD (coronary artery disease) Associated angina: without angina Coronary Disease-Associated Artery/Lesion type: [place] artery [place] vs. transplanted heart: [place] heart Qualified Code(s): I25.10 - Atherosclerotic heart disease of [place] coronary artery without angina pectoris (2) Atrial fibrillation Atrial fibrillation type: permanent Qualified Code(s): I48.21 - Permanent atrial fibrillation (3) Hypertension Hypertension type: primary hypertension Qualified Code(s): I10 - Essential (primary) hypertension (4) Cardiomyopathy Cardiomyopathy type: ischemic Qualified Code(s): I25.5 - Ischemic cardiomyopathy
[2021-05-09] MEDS ORDERED: FUROSEMIDE 40 MG/4 ML VIAL IV ONE (13:34)
--- NOTE | 2021-05-09 13:48 | Hospitalist Progress Note ---
Date of Service May 09, 2021 Assessment & Plan (1) Acute HFrEF (heart failure with reduced ejection fraction): Plan: Acute on chronic systolic CHF. Echo performed at [facility] on 03/24/21 with normal LV size with moderate to severely reduced systolic function. EF 25-30%. LAD and RCA territory infarct. No concentric LVH. No LV apical thrombus. Severe LA dilation. Multi-lobed MASON with large mobile thrombus (2cm) seated deep inside a trabeculation attached to the posterior wall of the MASON near the entry site. Now echo with EF of 15-20%. Presented with hypervolemia with increased weight gain, SOB, and LE edema Received Lasix 40 mg IV BID and weight down 6kg since admission, although I/O only net neg 1.6L Bin Filler bumped but stable around 2.0 Remains with edema and chest heaviness with lying at 30 degrees This is ischemic CM -give one dose IV lasix 40mg today 05/09 and reassess printing worker supervisor tomorrow - Continue metoprolol XL 100 mg PO daily - Plan to start Entresto and spironolactone as BPand renal function tolerate -appreciate any further input from Cardiology -also will consult CHF CLinic -change diet to low sodium from heart healthy -continue daily weights, I/Os -follow BMP, Mag in AM and replace lytes as needed (give 1 gram IV mag today) -needs eval for ICD as per Cardiology as has been >40 days with low EF with no recovery , for primary prevention of sudden cardiac -pt is agreeable with this (2) CAD (coronary artery disease): Plan: Patient with CAD s/p recent anterior wall STEMI secondary to large LAD thrombus s/p successful thrombectomy performed at [facility] on 03/19/21. No occlusive lesion noted in LAD - no stent placed. with chronically occluded RCA No angina but does have heaviness on chest at rest but not with exertion-that is likely from volume overload STEMI was presumed embolic event in the setting of left atrial appendage thrombus. -continue Plavix, beta-nicol and high-intensity statin therapy -continue Eliquis (3) Acute kidney injury: Plan: Elevation of BUN and Cr to 44 and 2.02, respectively. Possibly secondary to poor perfusion in setting of acutely decompensated CHF. With previously normal printing worker supervisor in 02/2021 had multiple dye loads I presume in Feb-Eber for embolectomies and then cardiac cath making urine on diuretics here but not prior to admission was on lisinopril prior to admission -continue to hold lisinopril -trying to diurese-give lasix again today -check Renal US -follow BMP, check UA Consider Nephrology consult if worsening or not improving (4) Atrial fibrillation: Plan: Patient with atrial fibrillation - most likely has had three cardioembolic events - acute CVA, LUE arterial thrombus, and LAD thrombus. Presently in atrial fibrillation. Anticoagulated on Eliquis. - Continue Eliquis at current dose 5mg po bid - Continue metoprolol XL 100 mg PO daily - Cardiology added digoxin on 05/07, dig level high normal at 1.3 -caution with digoxin in setting of VENICE--> check digoxin level again tomorrow - Goal HR <110 while inpatient -> Rates generally 70-80 bpm -continue tele monitoring (5) Hypertension: Plan: Blood pressure stable at present - Continue metoprolol - Hold lisinopril - Plan for Entresto & spironolactone as above - Monitor (6) Chronic kidney disease, stage 2 (mild): Plan: Review of historical GFR reveals a range of 69-82. - As above (7) Elevated troponin: Plan: mild, flat curve likely myocardial demand ischemia in setting of acute systolic CHF (8) Thrombus of left atrial appendage: Plan: as above, continue ELiquis Plan: Dispo-continued stay, needs more diuresis, careful monitoring of renal function, needs ICD placement likely this hospitalization Admission and Anticipated Discharge Date Admission Date: May 04, 2021 Subjective Pt feels still a little heavy in her chest when lying down at an angle in bed, but did walk with PT in halls today and did not have COY. Still feels has swelling in legs Tele with atrial flutter with controlled rates Review of Systems Review of Systems: All systems reviewed & are unremarkable except as noted in HPI & below Physical Exam Constitutional: WD/WN, vitals as above Eyes: + anicteric sclerae Neck: trachea midline, no thyromegaly Respiratory: normal respiratory effort; no cough Auscultation: + diminished lung sounds (at bases bilat); no wheezes Cardiovascular: Rate/Rhythm: regular rate and + irregularly irregular Heart Sounds: no murmur Extremities: + edema (1+ pitting edema legs bilat to knees) Chest (Breasts): Chest: normal inspection of chest Gastrointestinal (Abdomen): normal bowel sounds, soft, nontender, no hepatosplenomegaly Musculoskeletal: Extremities: extremities normal to inspection; no cyanosis and no clubbing Skin: no rashes, warm and dry Neurologic: moves all extremities and awake; no focal motor deficits Psychiatric: A+Ox3, euthymic affect Results & Data Results & Data ([facility]) Vital Signs (Past 12 Hours) Vital Signs Temp Pulse Pulse Pulse Resp BP Pulse Ox 05/09/21 11:40 36.4 C L 81 20 110/71 95 05/09/21 08:12 36.3 C L 85 20 125/80 94 05/09/21 07:29 89 05/09/21 03:19 36.3 C L 90 18 132/80 94 Laboratory Results 05/09/21 05/09/21 Range/Units 05:56 05:56 WBC 7.77 (4.8-10.8) K/uL RBC 4.67 (4.2-5.4) M/uL Hgb 13.0 (12.0-16.0) g/dL Hct 42.3 (37-47) % MCV 90.6 (80-100) fL MCH 27.8 (25-34) pg MCHC 30.7 L (32-36) g/dL RDW Std Deviation 58.7 H (36.4-46.3) fL RDW Coeff of Agusto 17.9 H (11.5-14.5) % Plt Count 243 (130-400) K/uL MPV 10.7 H (7.4-10.4) fL Absolute Nucleated RBC 0.04 H (0-0) K/uL Nucleated RBC % (auto) 0.6 % Sodium 139 (136-145) mmol/L Potassium 4.0 (3.5-5.1) mmol/L Chloride 102 (98-107) mmol/L Carbon Dioxide 30 (21-32) mmol/L Anion Gap 7 (3-11) BUN 42 H (6-23) mg/dl Creatinine 1.98 H (0.6-1.2) mg/dl Est Cr Clr Drug Dosing 23.9 ml/min Est GFR ( Amer) 28.5 ml/min Est GFR (Non-Af Amer) 24.6 ml/min BUN/Creatinine Ratio 21.2 H (10-20) Glucose 118 H (70-99(Fasting)) mg/dl Calcium 9.0 (8.5-10.1) mg/dl Magnesium 1.9 (1.7-2.4) mg/dl PG Care Time/CCT Total # of Minutes Spent Total Time Spent with Patient: Total time spent is greater than 50% in coordination of care (as documented) at patient's floor/unit and/or counseling patient: Coding Level of Care Code 65024 Subseq Hosp Care Lvl 3 Diagnoses Acute HFrEF (heart failure with reduced ejection fraction) I50.21 CAD (coronary artery disease) I25.10 Coronary Disease-Associated Artery/Lesion type: [place] artery [place] vs. transplanted heart: [place] heart Associated angina: without angina Acute kidney injury N17.9 Atrial fibrillation I48.21 Atrial fibrillation type: permanent Hypertension I10 Hypertension type: primary hypertension Chronic kidney disease, stage 2 (mild) N18.2 Elevated troponin R77.8 Thrombus of left atrial appendage I51.3 (1) CAD (coronary artery disease) Coronary Disease-Associated Artery/Lesion type: [place] artery [place] vs. transplanted heart: [place] heart Associated angina: without angina Qualified Code(s): I25.10 - Atherosclerotic heart disease of [place] coronary artery without angina pectoris (2) Atrial fibrillation Atrial fibrillation type: permanent Qualified Code(s): I48.21 - Permanent atrial fibrillation (3) Hypertension Hypertension type: primary hypertension Qualified Code(s): I10 - Essential (primary) hypertension
--- NOTE | 2021-05-09 15:33 | Ultrasound Report ---
US renal/blad retro comp CLINICAL HISTORY: Acute kidney injury TECHNIQUE: Multiple sonographic real-time images of the kidneys and bladder were obtained. COMPARISON: None available at the time of this dictation. FINDINGS: The right kidney measures 8.4 cm in length, and the left kidney measures 11.1 cm in length. The right kidney is diminutive in size with cortical thinning noted. There is a mid pole cystic struc ture measuring approximately 1.1 cm in diameter. Cortical scarring is noted in the upper midpole. No perinephric fluid collection is seen. The left kidney is normal in size, contour, cortical thickness and echogenicity. No hydronephrosis i s identified. No renal lesion is identified. No perinephric fluid collection is seen. The bladder is partially distended. No large intraluminal mass is seen. IMPRESSION: Right renal atrophic changes. No evidence of hydronephrosis. ACT 112: Negative or not required by law. Electronically signed by: Braeden Enriquez M.D. 05/09/2021 3:32 PM
[2021-05-09 16:13] LABS: Appearance Urine Clear (Clear); Bilirubin Urine Negative (Negative); Blood Urine Negative (Negative); Color Urine Yellow; Glucose Urine UA Negative (Negative); Ketones Urine Negative (Negative); Leukocyte Esterase Urine Negative (Negative); Nitrite Urine Negative (Negative); Protein Urine Negative (Negative); Specific Gravity Urine 1.006 (1.000-1.030); Urobilinogen Urine Negative (Negative); pH Urine 6.5 (4.5-7.5)
[2021-05-09] MEDS: ATORVASTATIN 40 MG TAB PO SCH (21:17)
[2021-05-10 06:37] LABS: BUN Creatinine Ratio 23.3 (10-20); Calcium 8.8 mg/dl (8.5-10.1); Creatinine Clr Calc Pharmacy 28.9 ml/min; Est GFR (African American) 36.1 ml/min; Est GFR (Non-African American) 31.2 ml/min; Magnesium 1.8 mg/dl (1.7-2.4); Potassium 3.4 mmol/L (3.5-5.1)
[2021-05-10] MEDS: APIXABAN 5 MG TABLET PO SCH ×2 (08:51→21:38)
[2021-05-10] MEDS: CLOPIDOGREL BISULFATE 75 MG TAB PO SCH (08:51)
[2021-05-10] MEDS: METOPROLOL SUCC 50MG EXT REL TAB PO SCH (08:51)
[2021-05-10] MEDS ORDERED: POTASSIUM CHLORIDE CRTAB 20 MEQ TABCR PO STA (10:17)
[2021-05-10] MEDS ORDERED: FUROSEMIDE 40 MG/4 ML VIAL IV ONE (10:17)
[2021-05-10] MEDS ORDERED: MAGNESIUM CITRATE 296 ML/BTL PO STA (10:18)
--- NOTE | 2021-05-10 16:58 | Hospitalist Progress Note ---
Date of Service May 10, 2021 Assessment & Plan (1) Acute HFrEF (heart failure with reduced ejection fraction): Plan: Acute on chronic systolic CHF. [place] [facility] [place] with normal LV size with moderate to severely reduced systolic function. EF 25-30%. LAD and RCA territory infarct. No concentric LVH. No LV apical thrombus. Severe LA dilation. Multi-lobed MASON with large mobile thrombus (2cm) seated deep inside a trabeculation attached to the posterior wall of the MASON near the entry site. Now echo with EF of 15-20%. - Continue Lasix 40 mg IV once today. - Continue Plavix, atorvastatin, metoprolol XL 150 mg PO daily - Continue apixaban - Plan to start Entresto and spironolactone as BP tolerates. => Weight down to below priors. Minimal leg swelling. Appears euvolemic. (2) CAD (coronary artery disease): Plan: Patient with CAD s/p anterior wall STEMI secondary to large LAD thrombus s/p successful thrombectomy performed [place] [facility] [place]. No occlusive lesion noted in LAD - no stent placed. - Plan as above (3) Acute kidney injury: Plan: Elevation of BUN and Cr to 44 and 2.02, respectively. Possibly secondary to poor perfusion in setting of acutely decompensated CHF. - Cr stable today at 2.0. Will continue diurese as above. (4) Atrial fibrillation: Plan: Patient with atrial fibrillation - most likely has had three cardioembolic event - acute CVA, LUE arterial thrombus, and LAD thrombus. Presently in atrial fibrillation. Anticoagulated on Eliquis. - Continue Eliquis. - Continue metoprolol XL 150 mg PO daily - Cardiology added digoxin on 05/07 - Goal HR <110 while inpatient -> Rates generally 70-80 bpm in last 24 hours. (5) Hypertension: Plan: Blood pressure stable at present at 125/70. - Continue metoprolol - Hold lisinopril - Plan for Entresto & spironolactone as above - Monitor (6) Chronic kidney disease, stage 2 (mild): Plan: Review of historical GFR reveals a range of 69-82. - As above Admission and Anticipated Discharge Date Admission Date: May 04, 2021 Subjective Doing well overall. Still with some mild swelling. Reports no fevers/chills, chest pain, shortness of breath, abdominal pain, nausea, or vomiting. Physical Exam Constitutional: WD/WN, vitals as above Eyes: EOM intact bilaterally; no conjunctival abnormality ENMT: external ear and nose normal, oropharynx normal Neck: trachea midline, no thyromegaly normal visual inspection Respiratory: normal respiratory effort, lungs clear to auscultation no respiratory distress Cardiovascular: Rate/Rhythm: regular rate and regular rhythm Vessels: no JVD Extremities: + edema Gastrointestinal (Abdomen): Inspection/Auscultation: abdomen normal to inspection; abdomen not distended Musculoskeletal: no cyanosis or clubbing, extremities motor strength 5/5 Skin: no rashes, warm and dry Neurologic: moves all extremities and awake Psychiatric: Orientation: alert, oriented to person and cooperative Results & Data Results & Data ([facility]) Vital Signs (Past 12 Hours) Vital Signs Temp Pulse Pulse Resp BP Pulse Ox 05/10/21 14:57 36.7 C 89 20 117/74 94 05/10/21 11:20 85 14 124/81 96 05/10/21 08:13 84 05/10/21 07:46 36.7 C 80 18 116/74 96 05/10/21 07:43 36.5 C 93 H 20 130/64 92 PG Care Time/CCT Total # of Minutes Spent Total Time Spent with Patient: Total time spent is greater than 50% in coordination of care (as documented) at patient's floor/unit and/or counseling patient: Coding Level of Care Code 97410 Subseq Hosp Care Lvl 2 Diagnoses Acute HFrEF (heart failure with reduced ejection fraction) I50.21 CAD (coronary artery disease) I25.10 Coronary Disease-Associated Artery/Lesion type: [place] artery [place] vs. transplanted heart: [place] heart Associated angina: without angina Acute kidney injury N17.9 Atrial fibrillation I48.21 Atrial fibrillation type: permanent Hypertension I10 Hypertension type: primary hypertension Chronic kidney disease, stage 2 (mild) N18.2 (1) CAD (coronary artery disease) Coronary Disease-Associated Artery/Lesion type: [place] artery [place] vs. transplanted heart: [place] heart Associated angina: without angina Qualified Code(s): I25.10 - Atherosclerotic heart disease of [place] coronary artery without angina pectoris (2) Atrial fibrillation Atrial fibrillation type: permanent Qualified Code(s): I48.21 - Permanent atrial fibrillation (3) Hypertension Hypertension type: primary hypertension Qualified Code(s): I10 - Essential (primary) hypertension
[2021-05-10] MEDS: DIGOXIN ELIXIR 0.05MG/ML PO SCH (17:00)
[2021-05-10] MEDS: ATORVASTATIN 40 MG TAB PO SCH (21:38)
[2021-05-11 07:16] LABS: Hematocrit (blood only) 40.4 % (37-47); Hemoglobin 12.2 g/dL (12.0-16.0); Mean Corpuscular Hemoglobin 27.1 pg (25-34); Mean Corpuscular Hgb Conc 30.2 g/dL (32-36); Mean Corpuscular Volume 89.6 fL (80-100); Mean Platelet Volume 10.6 fL (7.4-10.4); Platelet Count 231 K/uL (130-400); RDW Coefficient of Variation 17.8 % (11.5-14.5); RDW Standard Deviation 58.7 fL (36.4-46.3); Red Blood Count 4.51 M/uL (4.2-5.4); White Blood Count 7.66 K/uL (4.8-10.8)
[2021-05-11 07:34] LABS: BUN Creatinine Ratio 19.5 (10-20); Calcium 8.7 mg/dl (8.5-10.1); Creatinine Clr Calc Pharmacy 30.6 ml/min; Est GFR (African American) 38.7 ml/min; Est GFR (Non-African American) 33.4 ml/min; Magnesium 2.1 mg/dl (1.7-2.4); Potassium 3.8 mmol/L (3.5-5.1)
[2021-05-11] MEDS: APIXABAN 5 MG TABLET PO SCH (08:47)
[2021-05-11] MEDS: CLOPIDOGREL BISULFATE 75 MG TAB PO SCH (08:47)
[2021-05-11] MEDS: METOPROLOL SUCC 50MG EXT REL TAB PO SCH (08:47)
--- NOTE | 2021-05-11 15:29 | Discharge Summary ---
Date of Service May 11, 2021 Admission HPI Per Admitting Provider Sarah Ramírez is a 70yo female with history of CAD, HTN, HLP, NSVT and CHF. Patient presented to [facility] on 03/19/21 with ischemia of LUE. She was subsequently transferred to [facility] where she underwent successful embolectomy of LUE arterial thrombus with fasciotomy. Patient's course was complicated by post-operative STEMI. She had a cardiac catheterization performed which revealed a large occlusive thrombus of the mid-LAD which was successfully treated with thrombectomy. Patient suffered ICM, HFrEF following her STEMI with EF of 30%. Patient has been doing fairly well at home. However, she presents with compl aint of increased bilateral LE edema over the last several days with skin weeping noted today. She has had significant progressive COY, becomes short of breath with minimal exertion in her home. She is also complaining of substernal chest heaviness and tightness that occurs mostly with exertion and is relieved with rest. The chest heaviness has been ongoing for the last 2 days as well. She notes that it has become more severe. She does not have symptoms at rest. No additional complaints at this time. Patient denies abdominal pain, nausea, vomiting, diarrhea or constipation. She has some intermittent chills, otherwise no complaints. Patient afebrile, tachycardic in atrial fibrillation with rate of 103, otherwise stable, NAD Presently is without chest pain ER Course: Lasix 40mg IV Principal Diagnosis Acute systolic heart failure exacerbation Discharge Exam Constitutional WD/WN, vitals as above Eyes EOM intact bilaterally; no conjunctival abnormality ENMT external ear and nose normal, oropharynx normal Neck trachea midline, no thyromegaly normal visual inspection Respiratory normal respiratory effort, lungs clear to auscultation no respiratory distress Cardiovascular Rate/Rhythm: regular rate and regular rhythm Vessels: no JVD Extremities: no edema Gastrointestinal (Abdomen) Inspection/Auscultation: abdomen normal to inspection; abdomen not distended Musculoskeletal no cyanosis or clubbing, extremities motor strength 5/5 Skin no rashes, warm and dry Neurologic moves all extremities and awake Psychiatric Orientation: alert, oriented to person and cooperative Discharge Data Allergies Allergy/AdvReac Type Severity Reaction Status Date / Time Penicillins Allergy Mild RASH WHEN Verified 05/04/21 21:41 HAD INJECTION CHILD- CAN TAKE PILLS Consultations 05/04/21 21:51 ED Decision to Admit Stat 05/05/21 09:36 Consult Cardiology Routine 05/09/21 13:35 [facility] CHF Program Referral Routine Ordered Studies 05/09/21 13:36 US renal/blad retro comp Urgent Hospital Course (1) Acute HFrEF (heart failure with reduced ejection fraction): Acute on chronic systolic CHF. Echo performed at [facility] on 03/24/21 with normal LV size with moderate to severely reduced systolic function. EF 25-30%. LAD and RCA territory infarct. No concentric LVH. No LV apical thrombus. Severe LA dilation. Multi-lobed MASON with large mobile thrombus (2cm) seated deep inside a trabeculation attached to the posterior wall of the MASON near the entry site. Now echo with EF of 15-20%. - Continued Lasix 40 mg IV while inpatient. - Continue Plavix, atorvastatin, metoprolol XL 150 mg PO daily - Continue apixaban - Plan to start Entresto as outpatient. Start spironolactone as BP allows as outpatient. => Weight down to below priors. Dry weight appears to be 71.7 kg. Discharged on Lasix 40 mg PO daily. Seen by Claudia Dunn prior to discharge and will follow closely with her. (2) CAD (coronary artery disease): Patient with CAD s/p anterior wall STEMI secondary to large LAD thrombus s/p successful thrombectomy performed at [facility] on 03/19/21. No occlusive lesion noted in LAD - no stent placed. - Plan as above (3) Atrial fibrillation: Patient with atrial fibrillation - most likely has had three cardioembolic event - acute CVA, LUE arterial thrombus, and LAD thrombus. Presently in atrial fibrillation. Anticoagulated on Eliquis. - Continue Eliquis. - Continue metoprolol XL 150 mg PO daily - Cardiology added digoxin on 05/07 -> Discharged on digoxin 125 mcg PO daily. - Goal HR <110 while inpatient -> Rates generally 70-80 bpm in last 24 hours. (4) Acute kidney injury: Elevation of BUN and Cr to 44 and 2.02, respectively. Possibly secondary to poor perfusion in setting of acutely decompensated CHF. - Cr stable today at 1.5. I think this is probably her baseline or close to it. (5) Hypertension: Blood pressure stable at present at 125/70. - Continue metoprolol - Held lisinopril on discharge. -> Entresto on discharge. - Monitor (6) Chronic kidney disease, stage 2 (mild): Review of historical GFR reveals a range of 69-82. - As above Total Time Total Time Spent Total Time Spent (In Minutes): 35 Discharge Plan Discharge Items Patient Disposition: Home - Home Health Services Reason For Visit: SOB, CHEST PAIN Discharge Diagnosis: CHF exacerbation Activity: Resume your previous activity Non-emergency contact: Primary Care Provider and Pet Technologist Call non-emergency contact if: your symptoms worsen Follow-up/Referrals: Robb Leiva MD [Physician] - 05/31/21 1:45 pm (Please see Dr. Leiva in 2-3 weeks.) Robb Fernando MD [Primary Care Provider] - 05/19/21 10:30 am Claudia Dunn PA-C [Physician Etiquette Coach] - 05/18/21 10:30 am (Congestive Heart Failure Program Appointment Information Early follow up is essential to managing your heart failure. An appointment has been scheduled for you with the [facility] Heart Failure Program within 7 days of discharge. Anticipate this visit to be 30-60 minutes long. Please expect a production reproduction manager phone call from one of our nurses approximately 48 hours from discharge. They will also be placing an order for lab work to be completed 1-2 days prior to your heart failure follow up appointment. Please be sure to have this done so we can go over the results when you come in. Office Location The cardiology office building is located in front of the hospital at [address]. Bring the following with you to your follow-up doctor appointments: Please bring your daily weight log any discharge paperwork all of your medication bottles with you to this visit. ) Diet: Heart Healthy and Low Sodium (2gm) Addtl Attending Provider Instructions: Ms. Ramírez, You were admitted to the hospital with leg swelling and shortness of breath that was from something called heart failure. With a medication called Lasix (furosem michael), we were able to get the fluid off, and now your legs are feeling better, and you are breathing more normally now. Please follow up with Claudia Dunn in her clinic in 1 week to be sure you are still doing well and that the leg swelling is not coming back. Please weigh yourself when you get home. Your weight here is 158lbs. When you go home, weigh yourself every day on the same scale, at the same time of day, wearing the same or similar clothes. Use a sheet of paper to track your weight. If you gain more than 2 lbs in 1 day or more than 3-4 lbs over 2-3 days, please call Claudia Dunn to get instructions on how to manage your Lasix to prevent additional fluid from building up. Please follow a low salt diet (2000 mg or less per day). You will need to check the labels of prepared foods as they often contain quite a bit of salt. For your constipation, please take Miralax 1 capful every morning with a hot beverage (ie tea or coffee). If you DO NOT have a bowel movement that day, have another cup of tea in the evening with another 1/2 capful or full capful. The goal is to have 1 soft (but not runny) BM per day. Pending Studies at Discharge: No Stand-Alone Forms: My [facility] [employer], Smoking Cessation Medications and DC Order Prescriptions: New furosemide 40 mg tablet 40 mg PO DAILY Qty: 30 RF: 0 digoxin 125 mcg (0.125 mg) tablet 125 mcg PO DAILY Qty: 30 RF: 0 Entresto 24-26 mg tablet 1 tab PO BID Qty: 60 RF: 0 Continued atorvastatin 80 mg tablet 80 mg PO HS RF: 0 clopidogrel 75 mg Tablet 75 mg PO QAM Qty: 30 RF: 0 metoprolol succinate 100 mg tablet extended release 24 hr 100 mg PO DAILY RF: 0 nitroglycerin 0.4 mg tablet, sublingual 0.4 mg sublingual DIRECTED PRN (Reason: Chest Pain) RF: 0 ondansetron 4 mg tablet,disintegrating 4 mg translingual Q6H PRN (Reason: Nausea) RF: 0 Eliquis 5 mg tablet 5 mg PO BID RF: 0 sennosides-docusate sodium [Senokot-S] 8.6-50 mg tablet 1 - 2 tab-cap PO BID PRN (Reason: constipation) Qty: 60 RF: 2 Discontinued lisinopril 10 mg tablet 10 mg PO DAILY RF: 0 Discharge Orders: Discharge Order (Routine); Ordered 05/11/21 Ordered By: Yonis Cooper Admission Data Admit Date/Time: 05/04/21 22:42 Attending Provider: Yonis Cooper Admit Provider: Minal Adler Primary Care Provider: Robb Fernando Other Providers: Yonis Cooper ; Robb Leiva ; Claudia Dunn Other Interventions: Discharge Summary Assessment (RN) Last Done: 05/11/21 11:56 Coding Level of Care Code D/C DAY MANAGEMENT >30 MINS Diagnoses Acute HFrEF (heart failure with reduced ejection fraction) I50.21 CAD (coronary artery disease) I25.10 Coronary Disease-Associated Artery/Lesion type: [place] artery [place] vs. transplanted heart: [place] heart Associated angina: without angina Acute kidney injury N17.9 Atrial fibrillation I48.21 Atrial fibrillation type: permanent Hypertension I10 Hypertension type: primary hypertension Chronic kidney disease, stage 2 (mild) N18.2
== END 2021-05-11 13:15 | disposition home health service (06) | DRG 291 ==
LOC: ED 17:09 → 2N 22:42 → SUATTDRO 22:42 → 2N 05-05 00:09